=== PATIENT | female | born 1955 ===

== ENCOUNTER 2018-05-18 11:53 | Inpatient (IN) | payer OTHER ==
--- NOTE | 2018-05-18 13:00 | ED PDOC ---
Arrival/HPI - General Chief Complaint: Altered Mental Status Time Seen by Provider: 05/18/18 12:02 Historian: Patient - History of Present Illness Narrative History of Present Illness (Text): 05/18/18 12:56 63 year old female, with past medical history of hypertension and diabetes, presents to the Emergency department accompanied by daughter for evaluation of confusion since yesterday. As per daughter, patient expressed feeling "sick" since Wednesday but did not elaborate any further. Patient reported worsening symptoms yesterday associated with mild imbalance with ambulation. Daughter reports patient became more confused this morning, prompting her to present to the ED for medical evaluation. Patient informs having a cold but denies any fever, chills, cough or congestion. Patient denies any headache, dizziness, chest pain, shortness of breath, dyspnea on exertion, abdominal pain, nausea, vomiting, diarrhea, back pain, neck pain, or any other complaints. PMD: [facility] Time/Duration: < week Symptom Onset: Gradual Symptom Course: Unchanged Activities at Onset: Light Context: Home Past Medical History - Provider Review Nursing Documentation Reviewed: Yes - Past History Past History: Non-Contributing - Infectious Disease Hx of Infectious Diseases: None - Tetanus Immunization Tetanus Immunization: Unknown - Cardiac Hx Cardiac Disorders: Yes Hx Hypertension: Yes - Pulmonary Hx Respiratory Disorders: No - Neurological Hx Neurological Disorder: No - HEENT Hx HEENT Disorder: No - Renal Hx Renal Disorder: No - Endocrine/Metabolic Hx Endocrine Disorders: Yes Hx Diabetes Mellitus Type 2: Yes - Hematological/Oncological Hx Blood Disorders: No - Integumentary Hx Dermatological Disorder: No - Musculoskeletal/Rheumatological Hx Musculoskeletal Disorders: No - Gastrointestinal Hx Gastrointestinal Disorders: No - Genitourinary/Gynecological Hx Genitourinary Disorders: No - Psychiatric Hx Psychophysiologic Disorder: No Hx Substance Use: No - Surgical History Hx Cholecystectomy: Yes (15 years ago) - Suicidal Assessment Feels Threatened In Home Enviroment: No Family/Social History - Physician Review Nursing Documentation Reviewed: Yes Family/Social History: Unknown Family HX Smoking Status: Never Smoked Hx Alcohol Use: No Hx Substance Use: No Hx Substance Use Treatment: No Allergies/Home Meds Allergies/Adverse Reactions: Allergies No Known Allergies Allergy (Verified 05/18/18 12:07) Home Medications: Home Meds Medication Instructions Recorded Confirmed Insulin Detemir [Levemir] 30 unit SC DAILY 05/29/15 05/18/18 Review of Systems - Physician Review All systems were reviewed & negative as marked: Yes - Review of Systems Constitutional: absent: Fevers Respiratory: absent: SOB, Cough Cardiovascular: absent: Chest Pain, EDMOND Gastrointestinal: absent: Abdominal Pain, Diarrhea, Nausea, Vomiting Genitourinary Female: absent: Dysuria, Urine Output Changes Musculoskeletal: absent: Back Pain, Neck Pain Skin: absent: Rash Neurological: Other (Confused than baseline). absent: Headache, Dizziness Physical Exam Vital Signs Reviewed: Yes Vital Signs Temp Pulse Resp BP Pulse Ox 05/18/18 11:57 97.8 F 118 H 18 175/96 H 98 Temperature: Afebrile Blood Pressure: Hypertensive Pulse: Tachycardic Respiratory Rate: Normal Appearance: Positive for: Well-Appearing, Non-Toxic, Comfortable Pain Distress: None Mental Status: Positive for: Confused - Systems Exam Head: Present: Atraumatic, Normocephalic Pupils: Present: PERRL Extroacular Muscles: Present: EOMI Conjunctiva: Present: Normal Respiratory/Chest: Present: Clear to Auscultation, Good Air Exchange. No: Respiratory Distress, Accessory Muscle Use Cardiovascular: Present: Regular Rate and Rhythm, Normal S1, S2. No: Murmurs Abdomen: No: Tenderness, Distention, Peritoneal Signs Back: Present: Normal Inspection Upper Extremity: Present: Normal Inspection. No: Cyanosis, Edema Lower Extremity: Present: Normal Inspection. No: Edema Neurological: Present: GCS=15, CN II-XII Intact, Speech Normal (Slow to answer to questions and commands. ), Other (Finger to nose test normal, heel to barrios test normal. ) Skin: Present: Warm, Dry, Normal Color. No: Rashes Psychiatric: Present: Alert, Normal Insight, Normal Concentration Medical Decision Making ED Course and Treatment: 05/18/18 12:56 Impression: 63 year old female presents to the Emergency department for evaluation of confusion since unknown baseline. Differential Diagnosis included but are not limited to: CVA vs. DKA vs. Electrolyte imbalance Plan: -- Labs -- CT of Head -- VBG -- EKG -- Chest X-ray -- IV Fluids -- Blood Culture -- Reassess and disposition Prior Visits: Notes and results from previous visits were reviewed. Progress Notes: 05/18/18 12:56 EKG: Ordered, reviewed, and independently interpreted the EKG. Rate : 99 BPM Rhythm : NSR 05/18/18 15:25 CT of head reviewed by radiologist, shows: Discrete round low-density lesions in the left posterior cuellar radiata and parietal subcortical white matter are strictly nonspecific. The differential considerations include age indeterminate likely chronic infarctions, demyelination amongst others. An MRI of the brain without and with intravenous contrast is recommended for definitive characterization. 05/18/18 15:36 Chest X-ray reviewed by radiologist, shows: No active pulmonary disease. 05/18/18 16:55 Patient still with same neuro exam. Case was discussed with the hospitalist, Dr. Christopher and admitted to the hospitalist service. Case was discussed with Dr. Tolentino, Neurologist. Patient is not a Candidate for TPA due to unknown time of onset. NIHSS 2. Patient also just developed a low grade fever of 100.3. UA sent. 05/18/18 18:52 UA postive for UTI. Treated with Rocephin IV. Called RN Jeison from the floor who is taking care of her and made her aware of the abx order. She will give it now. - RAD Interpretation 911 Emergency Dispatcher: Radiologist NIHSS Scale ([place]) Time Performed: 13:10 - How Severe is the Stoke Baseline Level of Consciousness: 0=Alert LOC to Questions: 0=Both comments correct LOC to commands: 0=Obeys both correctly Best Gaze: 0=Normal Visual: 0=No visual loss Facial: 0=Normal Motor Arm - Left: 0=No drift Motor Arm - Right: 0=No drift Motor Leg - Left: 0=No drift Motor Leg - Right: 0=No drift Limb Ataxia: 0=Absent Sensory: 0=Normal Best Language: 1=Mild to moderate aphasia Dysarthia: 1=Mild to moderate slurring Extinction & Inattention (Neglect): 0=Normal, no object Score: 2 Risk Level: Minor Stroke Risk rTPA Inclusion/Exclusion - Refusal of Treatment Patient Refused Treatment: No - Inclusion Criteria for Altepase Patient is 18 years or Older: Yes The Clinical Diagnosis of Ischemic Stroke That is Causing a Potentially Disabling Neurological Deficit: Yes Time of Onset is Well Established to be Less Than 270 Minute Before Treatment Would Begin: No Risk/Benefit Discussed With Patient/Family Member Present: No - Scribe Statement The provider has reviewed the documentation as recorded by the Scribe Rolando Linda. All medical record entries made by the Dev were at my direction and personally dictated by me. I have reviewed the chart and agree that the record accurately reflects my personal performance of the history, physical exam, medical decision making, and the department course for this patient. I have also personally directed, reviewed, and agree with the discharge instructions and disposition. Disposition/Present on Arrival - Present on Arrival Any Indicators Present on Arrival: No History of DVT/PE: No History of Uncontrolled Diabetes: No Urinary Catheter: No History of Decub. Ulcer: No History Surgical Site Infection Following: None - Disposition Have Diagnosis and Disposition been Completed?: Yes Diagnosis: CVA (cerebral vascular accident), UTI (urinary tract infection) Disposition: HOSPITALIZED Disposition Time: 16:58 Patient Plan: Admission Patient Problems: Current Active Problems Problem Status Onset CVA (cerebral vascular accident) Acute Condition: GUARDED
[2018-05-18] MEDS: Sodium Chloride 0.9% 1,000 ML IV SCH (13:40)
[2018-05-18 13:59] LABS: BASO # 0.03 K/mm3 (0.0-2.0); BASO % 0.3 % (0.0-3.0); EOS % 0.2 % (1.5-5.0); GRAN # 8.6 (1.4-6.5); GRAN % 74.1 % (50.0-68.0); HEMOGLOBIN 14.6 g/dL (12.0-16.0); LYMPH # 1.9 (1.2-3.4); LYMPH % 16.3 % (22.0-35.0); MEAN CORPUSCULAR HGB CONC 34.5 g/dl (31.0-37.0); MEAN PLATELET VOLUME 9.8 fl (7.0-11.0); MONO # 1.1 (0.1-0.6); MONO % 9.1 % (1.0-6.0); RBC 5.22 10^6/uL (3.5-6.1); RED CELL DISTRIBUTION WIDTH 11.7 % (11.5-14.5); WHITE BLOOD COUNT 11.6 10^3/uL (4.5-11.0)
[2018-05-18 14:00] LABS: VENOUS BLOOD GAS PO2 73 mm/Hg (30-55); VENOUS BLOOD PH 7.38 (7.32-7.43)
[2018-05-18 14:08] LABS: INR 1.09; PARTIAL THROMBOPLASTIN TIME 25.7 Seconds (25.1-36.5); PROTHROMBIN TIME 12.5 SECONDS (9.4-12.5)
[2018-05-18 14:13] LABS: ALBUMIN 4.1 g/dL (3.0-4.8); ALT/SGPT 29 U/L (7-56); AST/SGOT 25 U/L (14-36); BLOOD UREA NITROGEN 16 mg/dL (7-21); CALCIUM 9.1 mg/dL (8.4-10.5); GFR NON-AFRICAN AMERICAN > 60; HDL CHOLESTEROL 47 mg/dL (29-60)
[2018-05-18 14:24] LABS: LDL CHOLESTEROL 163 mg/dL (0-129); TROPONIN I < 0.01 ng/mL
--- NOTE | 2018-05-18 15:13 | CT ---
Date of service: 05/18/2018 PROCEDURE: CT HEAD WITHOUT CONTRAST. HISTORY: confusion, slurred speech COMPARISON: None available. TECHNIQUE: Axial computed tomography images were obtained through the head/brain without intravenous contrast. Radiation dose: Total exam DLP = 877.77 mGy-cm. This CT exam was performed using one or more of the following dose reduction techniques: Automated exposure control, adjustment of the mA and/or kV according to patient size, and/or use of iterative reconstruction technique. FINDINGS: HEMORRHAGE: No intracranial hemorrhage. BRAIN: There are 2 discrete round low-attenuation areas in the left posterior cuellar radiata and parietal subcortical white matter. Thompson-white matter differentiation is preserved.. There is no mass, mass effect or abnormal extra-axial fluid collection. There is no territorial infarction. The midline sagittal structures are normal. There are symmetric bilateral senile basal ganglia calcifications. VENTRICLES: The ventricles are normal in size, shape and configuration. CALVARIUM: There is no calvarial fracture or extracranial soft tissue swelling. PARANASAL SINUSES: Predominantly clear. MASTOID AIR CELLS: The right mastoid air cells are underdeveloped. The left mastoid air cells are clear. OTHER FINDINGS: None. IMPRESSION: Discrete round low-density lesions in the left posterior cuellar radiata and parietal subcortical white matter are strictly nonspecific. The differential considerations include age indeterminate likely chronic infarctions, demyelination amongst others. An MRI of the brain without and with intravenous contrast is recommended for definitive characterization.
--- NOTE | 2018-05-18 15:34 | RAD ---
Date of service: 05/18/2018 HISTORY: Code Stroke COMPARISON: No prior. FINDINGS: LUNGS: The lungs are well inflated and clear. PLEURA: No pleural effusions or pneumothorax. CARDIOVASCULAR: The heart is normal in size. No aortic atherosclerotic calcification present. OSSEOUS STRUCTURES: Within normal limits for the patient's age. VISUALIZED UPPER ABDOMEN: Normal. OTHER FINDINGS: None. IMPRESSION: No active pulmonary disease.
[2018-05-18 17:27] LABS: BARBITURATES, UR NEGATIVE (NEGATIVE); BENZODIAZEPINES, UR NEGATIVE (NEGATIVE); OPIATES, UR NEGATIVE (NEGATIVE); PHENCYCLIDINE, UR NEGATIVE (NEGATIVE)
[2018-05-18 18:28] LABS: URINE BILIRUBIN NEGATIVE (NEGATIVE); URINE BLOOD TRACE-INTACT (NEGATIVE); URINE GLUCOSE (UA) 500 mg/dL (NEGATIVE); URINE LEUKOCYTE ESTERASE NEGATIVE Leu/uL (NEGATIVE); URINE PROTEIN 30 mg/dL (<30 mg/dL); URINE UROBILINOGEN 0.2 E.U./dL (<1 E.U./dL)
[2018-05-18 18:32] LABS: URINE APPEARANCE SL CLOUDY (CLEAR); URINE COLOR YELLOW (YELLOW)
[2018-05-18 18:40] LABS: URINE BACTERIA MOD (NEG); URINE WBC 25 - 30 /hpf (0-6)
[2018-05-18] MEDS ORDERED: cefTRIAXone 1 gm 1 GM/100 ML BAG IVPB STA (18:51)
--- NOTE | 2018-05-18 20:26 | CARD ---
APPROVED REPORT Date of service: 05/18/2018 EKG Measurement Heart [id number] <Conclusion> Normal sinus rhythm Normal ECG
--- NOTE | 2018-05-18 22:00 | CP.PCM.HP ---
<Hal Macias - Last Filed: 05/19/18 06:53> History of Present Illness - History of Present Illness History of Present Illness: H&P for Hospitalist Service Hal Gilberto PGY2 Chief Complaint: As per family, patient unable to speak; unintelligible HPI: Patient is a 63 F with unknown past medical history who presents with family members with complaints of patient having marked trouble with talking. Most of history was obtained from patient's daughter as patient was unable to communicate well. As per daughter, patient began complaining of generalized cold like symptoms which began Wednesday night. Patient then woke up Wednesday to go to work and still didn't feel well however kept trying to work. By late afternoon patient noted something was "off" and left work early to go home. By time patient got home she noticed she was having difficult speaking and ten decided to sleep due to frustration with homes that upon wakening her symptoms would have resolved. Of note patient's neighbor noticed that patient was struggling to get inside the house since she would only place they bhatti in the door knob however couldnt think to turn the actual door knob to open the door and was observed to be pushing the door with her hand without turning the k nob with hopes of thee door opening which the neighbor found bizarre. ROS limited due to patient's condition PMD:denies Social Hx: denies tobacco, alcohol, drugs Family hx: father ([place]), Mother (denies) Allergies: NKDA CTH: discrete round low-density lesions in left posterior cuellar radiata and parietal subcortical white matter. Present on Admission - Present on Admission Any Indicators Present on Admission: No Review of Systems - Review of Systems Systems not reviewed;Unavailable: Acuity of Condition Past Patient History - Infectious Disease Hx of Infectious Diseases: None - Tetanus Immunizations Tetanus Immunization: Unknown - Past Social History Smoking Status: Never Smoked - CARDIAC Hx Cardiac Disorders: Yes Hx Hypertension: Yes - PULMONARY Hx Respiratory Disorders: No - NEUROLOGICAL Hx Neurological Disorder: No - HEENT Hx HEENT Problems: No - RENAL Hx Chronic Kidney Disease: No - ENDOCRINE/METABOLIC Hx Endocrine Disorders: Yes Hx Diabetes Mellitus Type 2: Yes - HEMATOLOGICAL/ONCOLOGICAL Hx Blood Disorders: No - INTEGUMENTARY Hx Dermatological Problems: No - MUSCULOSKELETAL/RHEUMATOLOGICAL Hx Musculoskeletal Disorders: No - GASTROINTESTINAL Hx Gastrointestinal Disorders: No - GENITOURINARY/GYNECOLOGICAL Hx Genitourinary Disorders: No - PSYCHIATRIC Hx Psychophysiologic Disorder: No Hx Substance Use: No - SURGICAL HISTORY Hx Cholecystectomy: Yes (15 years ago) Meds Allergies/Adverse Reactions: Allergies Allergy/AdvReac Type Severity Reaction Status Date / Time No Known Allergies Allergy Verified 05/18/18 12:07 Physical Exam - Constitutional Appears: Non-toxic, No Acute Distress - Head Exam Head Exam: ATRAUMATIC, NORMAL INSPECTION, NORMOCEPHALIC - Eye Exam Eye Exam: EOMI, Normal appearance - ENT Exam ENT Exam: Mucous Membranes Moist, Normal Exam - Neck Exam Neck exam: Positive for: Normal Inspection - Respiratory Exam Respiratory Exam: Clear to Auscultation Bilateral, NORMAL BREATHING PATTERN - Cardiovascular Exam Cardiovascular Exam: REGULAR RHYTHM, +S1, +S2 - GI/Abdominal Exam GI & Abdominal Exam: Normal Bowel Sounds, Soft - Extremities Exam Extremities exam: Positive for: normal inspection - Neurological Exam Neurological exam: Alert, Oriented x3 - Psychiatric Exam Psychiatric exam: Normal Affect, Normal Mood - Skin Skin Exam: Normal Color, Warm Results - Vital Signs Recent Vital Signs: Last Vital Signs Temp 100.3 F H 05/18/18 18:23 Pulse 99 H 05/18/18 18:23 Resp 18 05/18/18 18:23 BP 116/44 L 05/18/18 18:23 Pulse Ox 95 05/18/18 18:23 - Labs Result Diagrams: 05/18/18 13:42 05/18/18 13:42 Labs: Laboratory Results - last 24 hr 05/18/18 05/18/18 05/18/18 13:42 13:42 13:42 WBC 11.6 H RBC 5.22 Hgb 14.6 Hct 42.3 MCV 81.0 MCH 28.0 MCHC 34.5 RDW 11.7 Plt Count 385 MPV 9.8 Gran % 74.1 H Lymph % (Auto) 16.3 L Sunflower % (Auto) 9.1 H Eos % (Auto) 0.2 L Baso % (Auto) 0.3 Gran # 8.60 H Lymph # (Auto) 1.9 Sunflower # (Auto) 1.1 H Eos # (Auto) 0.0 Baso # (Auto) 0.03 PT 12.5 INR 1.09 APTT 25.7 pO2 VBG pH VBG pCO2 VBG HCO3 VBG Total CO2 VBG O2 Sat (Calc) VBG Base Excess VBG Potassium Sodium 136 Chloride 101 Glucose Lactate FiO2 Potassium 3.8 Carbon Dioxide 26 Anion Gap 13 BUN 16 Creatinine 0.4 L Est GFR ( Amer) > 60 Est GFR (Non-Af Amer) > 60 Random Glucose 248 H Calcium 9.1 Magnesium 1.8 Total Bilirubin 0.7 AST 25 ALT 29 Alkaline Phosphatase 140 H Troponin I < 0.01 Total Protein 8.0 Albumin 4.1 Globulin 3.9 Albumin/Globulin Ratio 1.0 L Triglycerides 128 Cholesterol 237 H LDL Cholesterol Direct 163 H HDL Cholesterol 47 TSH 3rd Generation Venous Blood Potassium Urine Color Urine Appearance Urine pH Ur Specific [place] Urine Protein Urine Glucose (UA) Urine Ketones Urine Blood Urine Nitrate Urine Bilirubin Urine Urobilinogen Ur Leukocyte Esterase Urine RBC Urine WBC Ur Epithelial Cells Urine Bacteria Urine Opiates Screen Urine Methadone Screen Ur Barbiturates Screen Ur Phencyclidine Scrn Ur Amphetamines Screen U Benzodiazepines Scrn U Oth Cocaine Metabols U Cannabinoids Screen Blood Type Blood Type Confirm Antibody Screen BBK History Checked 05/18/18 05/18/18 05/18/18 13:42 14:02 14:32 WBC RBC Hgb Hct MCV MCH MCHC RDW Plt Count MPV Gran % Lymph % (Auto) Sunflower % (Auto) Eos % (Auto) Baso % (Auto) Gran # Lymph # (Auto) Sunflower # (Auto) Eos # (Auto) Baso # (Auto) PT INR APTT pO2 73 H VBG pH 7.38 VBG pCO2 43.0 VBG HCO3 25.4 VBG Total CO2 26.7 VBG O2 Sat (Calc) 97.3 H VBG Base Excess 0.0 VBG Potassium 3.8 Sodium 142.0 Chloride 94.0 L Glucose 268 H Lactate 1.3 FiO2 21.0 Potassium Carbon Dioxide Anion Gap BUN Creatinine Est GFR ( Amer) Est GFR (Non-Af Amer) Random Glucose Calcium Magnesium Total Bilirubin AST ALT Alkaline Phosphatase Troponin I Total Protein Albumin Globulin Albumin/Globulin Ratio Triglycerides Cholesterol LDL Cholesterol Direct HDL Cholesterol TSH 3rd Generation Venous Blood Potassium 3.8 Urine Color Urine Appearance Urine pH Ur Specific [place] Urine Protein Urine Glucose (UA) Urine Ketones Urine Blood Urine Nitrate Urine Bilirubin Urine Urobilinogen Ur Leukocyte Esterase Urine RBC Urine WBC Ur Epithelial Cells Urine Bacteria Urine Opiates Screen Urine Methadone Screen Ur Barbiturates Screen Ur Phencyclidine Scrn Ur Amphetamines Screen U Benzodiazepines Scrn U Oth Cocaine Metabols U Cannabinoids Screen Blood Type B POSITIVE Blood Type Confirm B POSITIVE Antibody Screen Negative BBK History Checked No verified bt 05/18/18 05/18/18 05/18/18 15:00 15:00 18:19 WBC RBC Hgb Hct MCV MCH MCHC RDW Plt Count MPV Gran % Lymph % (Auto) Sunflower % (Auto) Eos % (Auto) Baso % (Auto) Gran # Lymph # (Auto) Sunflower # (Auto) Eos # (Auto) Baso # (Auto) PT INR APTT pO2 VBG pH VBG pCO2 VBG HCO3 VBG Total CO2 VBG O2 Sat (Calc) VBG Base Excess VBG Potassium Sodium Chloride Glucose Lactate FiO2 Potassium Carbon Dioxide Anion Gap BUN Creatinine Est GFR ( Amer) Est GFR (Non-Af Amer) Random Glucose Calcium Magnesium Total Bilirubin AST ALT Alkaline Phosphatase Troponin I Total Protein Albumin Globulin Albumin/Globulin Ratio Triglycerides Cholesterol LDL Cholesterol Direct HDL Cholesterol TSH 3rd Generation 1.53 Venous Blood Potassium Urine Color Yellow Urine Appearance Sl cloudy Urine pH 6.0 Ur Specific [place] >= 1.030 Urine Protein 30 H Urine Glucose (UA) 500 H Urine Ketones 40 H Urine Blood Trace-intact H Urine Nitrate Negative Urine Bilirubin Negative Urine Urobilinogen 0.2 Ur Leukocyte Esterase Negative Urine RBC 2 - 5 Urine WBC 25 - 30 Ur Epithelial Cells 10 - 12 Urine Bacteria Mod Urine Opiates Screen Negative Urine Methadone Screen Negative Ur Barbiturates Screen Negative Ur Phencyclidine Scrn Negative Ur Amphetamines Screen Negative U Benzodiazepines Scrn Negative U Oth Cocaine Metabols Negative U Cannabinoids Screen Negative Blood Type Blood Type Confirm Antibody Screen BBK History Checked Assessment & Plan - Assessment and Plan (Free Text) Assessment: Patient is a 63 F with unknown past medical history who presents with family members with complaints of patient having a hard time speaking. Patient is able to comprehend, but has problems expressing herself. Found to often go off on tangents when she speaks. Also has gaps in her speech where she misses verbs. Has been known to refer to herself and others in 3rd person. Plan: Expressive aphasia -CTH-discrete round low-density lesions in left posterior cuellar radiata and parietal subcortical white matter. -Neuro on consult -Aspirin daily -Swallow eval and treat -PT/OT -Aspiration/Seizure/Fall precautions -CTA head/neck -HOB 45 degrees -Brain MRI -Lipid panel IDDM -HgA1C 12 -ISS-med -Diabetic education Leukocytosis -Monitor, possibly reactive -Blood/Urine cultures sent -UA neg nitrates nd LE, wbc count 25-30 DVT/GI ppx: SCDs/Protonix Case seen and discussed with Dr. Rodriguez <Tiffani Rodrigeuz - Last Filed: 05/22/18 14:19> Results - Vital Signs Recent Vital Signs: Last Vital Signs Temp 97.8 F 05/22/18 12:00 Pulse 82 05/22/18 13:48 Resp 18 05/22/18 12:00 BP 149/88 05/22/18 12:00 Pulse Ox 99 05/22/18 06:00 - Labs Result Diagrams: 05/22/18 07:30 05/22/18 07:30 Labs: Laboratory Results - last 24 hr 05/21/18 05/21/18 05/22/18 16:32 21:16 07:29 WBC RBC Hgb Hct MCV MCH MCHC RDW Plt Count MPV Gran % Lymph % (Auto) Sunflower % (Auto) Eos % (Auto) Baso % (Auto) Gran # Lymph # (Auto) Sunflower # (Auto) Eos # (Auto) Baso # (Auto) Sodium Potassium Chloride Carbon Dioxide Anion Gap BUN Creatinine Est GFR ( Amer) Est GFR (Non-Af Amer) POC Glucose (mg/dL) 161 H 170 H 177 H Random Glucose Calcium Total Bilirubin AST ALT Alkaline Phosphatase Total Protein Albumin Globulin Albumin/Globulin Ratio 05/22/18 05/22/18 07:30 07:30 WBC 13.8 H D RBC 4.96 Hgb 13.6 Hct 39.9 MCV 80.4 MCH 27.4 MCHC 34.1 RDW 11.6 Plt Count 377 MPV 9.6 Gran % 77.8 H Lymph % (Auto) 12.6 L Sunflower % (Auto) 8.8 H Eos % (Auto) 0.6 L Baso % (Auto) 0.2 Gran # 10.72 H Lymph # (Auto) 1.7 Sunflower # (Auto) 1.2 H Eos # (Auto) 0.1 Baso # (Auto) 0.03 Sodium 139 Potassium 3.6 Chloride 102 Carbon Dioxide 27 Anion Gap 13 BUN 9 Creatinine 0.4 L Est GFR ( Amer) > 60 Est GFR (Non-Af Amer) > 60 POC Glucose (mg/dL) Random Glucose 178 H Calcium 9.0 Total Bilirubin 0.6 AST 21 ALT 21 Alkaline Phosphatase 110 Total Protein 6.9 Albumin 3.5 Globulin 3.4 Albumin/Globulin Ratio 1.0 L Attending/Attestation - Attestation I have personally seen and examined this patient.: Yes I have fully participated in the care of the patient.: Yes I have reviewed all pertinent clinical information: Yes Notes (Text): 05/22/18 14:17 attending note; Patient seen and examined with resident in ER. Patient's family by the bedside. History from patient's family. Patient is a 63 -year-old [place]er-speaking female with unknown past medical history who presents with family members with complaints of patient having marked trouble with talking. Most of history was obtained from patient's daughter as patient was unable to communicate well. dysarthria; possible expressive aphasia. CT head showed discrete round low-density lesions in left posterior cuellar radiata and parietal subcortical white matter. neurology evaluation requested. MRA and CTA ordered. Speech and swallow evaluation requested. The patient failed speech and swallow screen in the ER. Continue IV fluids. Per rectal aspirin given. Echocardiogram ordered. Physical therapy requested. The diagnosis, follow-up plan discussed with family in detail.
[2018-05-18] MEDS: Insulin Reg-MEDIUM-Coverage SC SCH (22:32)
[2018-05-19 00:56] VITALS: BMI 26.5
[2018-05-19] MEDS: Sodium Chloride 0.9% 1,000 ML IV SCH ×3 (05:48→18:48)
[2018-05-19 06:35] LABS: BASO # 0.03 K/mm3 (0.0-2.0); BASO % 0.3 % (0.0-3.0); EOS # 0.1 (0.0-0.7); EOS % 0.5 % (1.5-5.0); GRAN # 5.69 (1.4-6.5); GRAN % 62.3 % (50.0-68.0); HEMOGLOBIN 13.3 g/dL (12.0-16.0); LYMPH # 2.4 (1.2-3.4); LYMPH % 26.1 % (22.0-35.0); MEAN CELL VOLUME 81.4 fl (80.0-105.0); MEAN CORPUSCULAR HEMOGLOBIN 27.3 pg (25.0-35.0); MEAN CORPUSCULAR HGB CONC 33.5 g/dl (31.0-37.0); MEAN PLATELET VOLUME 9.6 fl (7.0-11.0); MONO % 10.8 % (1.0-6.0); RBC 4.88 10^6/uL (3.5-6.1); RED CELL DISTRIBUTION WIDTH 11.7 % (11.5-14.5); WHITE BLOOD COUNT 9.2 10^3/uL (4.5-11.0)
[2018-05-19 07:01] LABS: ALBUMIN 3.5 g/dL (3.0-4.8); ALT/SGPT 29 U/L (7-56); AST/SGOT 23 U/L (14-36); BLOOD UREA NITROGEN 12 mg/dL (7-21); CALCIUM 8.4 mg/dL (8.4-10.5); GFR NON-AFRICAN AMERICAN > 60; HDL CHOLESTEROL 36 mg/dL (29-60)
[2018-05-19 07:04] LABS: LDL CHOLESTEROL 138 mg/dL (0-129)
--- NOTE | 2018-05-19 07:33 | CP.PCM.PN ---
<Suzi Esquivel - Last Filed: 05/19/18 21:01> Subjective - Date & Time of Evaluation Date of Evaluation: 05/19/18 Time of Evaluation: 09:45 - Subjective Subjective: Internal medicine progress ntoe for Dr. Rodriguez Patient seen and examined this am at bedside. NAEO per nursing. Patient is continuing to have difficulty expressing herself but is oriented to self and place generally. Patient is able to ambulate with PT assistance but has deficits. Patient became tearful during interview with daughter present. Daughter denies any improvement or worsening of symptoms since admission to the hospital. Patient is unable to answer ROS at this time d/t expressive aphasia. Objective - Vital Signs/Intake and Output Vital Signs (last 24 hours): Temp Pulse Resp BP Pulse Ox 97.8 F 79 20 130/65 97 05/19/18 06:00 05/19/18 06:00 05/19/18 06:00 05/19/18 06:00 05/19/18 06:00 Intake and Output: 05/19/18 05/19/18 06:59 18:59 Intake Total 1200 Output Total 0 Balance 1200 - Medications Medications: Current Medications Aspirin (Aspirin Supp) 300 mg RC DAILY [facility] Sodium Chloride (Sodium Chloride 0.9%) 1,000 mls @ 100 mls/hr IV .Q10H [facility] Last Admin: 05/19/18 05:48 Dose: 100 mls/hr Insulin Human Regular (Humulin R Med) 0 units SC ACHS [facility]; Protocol Last Admin: 05/18/18 22:32 Dose: Not Given Pantoprazole Sodium (Protonix Inj) 40 mg IVP DAILY [facility] - Labs Labs: 05/19/18 06:05 05/19/18 06:05 PT 12.5 SECONDS (9.4-12.5) 05/18/18 13:42 INR 1.09 05/18/18 13:42 APTT 25.7 Seconds (25.1-36.5) 05/18/18 13:42 - Constitutional Appears: Well, Non-toxic, No Acute Distress - Head Exam Head Exam: ATRAUMATIC, NORMOCEPHALIC - Eye Exam Eye Exam: EOMI - ENT Exam ENT Exam: Mucous Membranes Moist - Respiratory Exam Respiratory Exam: NORMAL BREATHING PATTERN - Cardiovascular Exam Cardiovascular Exam: REGULAR RHYTHM - GI/Abdominal Exam GI & Abdominal Exam: Soft. absent: Distended, Guarding, Tenderness - Extremities Exam Extremities Exam: absent: Calf Tenderness, Pedal Edema - Neurological Exam Neurological Exam: Alert, Awake. absent: Oriented x3 Neuro motor strength exam: Left Upper Extremity: 5, Right Upper Extremity: 4, Left Lower Extremity: 5, Right Lower Extremity: 3 Additional comments: pt visibly drags right foot when ambulating with PT, pt displays expressive aphasia and word finding difficulty - Psychiatric Exam Psychiatric exam: Normal Mood - Skin Skin Exam: Dry, Intact, Normal Color, Warm Assessment and Plan - Assessment and Plan (Free Text) Assessment: 63 yr F with Infarcts on MRI brain to left cuellar radiata and parietal subcortical white matter with expressive aphasia and right sided weakness Plan: Expressive aphasia -CTH-discrete round low-density lesions in left posterior cuellar radiata and parietal subcortical white matter. -Neuro on consult, recs appreciated -Aspirin daily, Beginning plavix per Neuro recs -Swallow eval and treat today, will f/u diet recs - NS @ 100 until diet given -PT/OT -Aspiration/Seizure/Fall precautions -CTA head/neck negative for current aneurysm, stenosis or occlusion -HOB 45 degrees -Brain MRI: showing -mild hypercholesterolemia with Low HDL; ASCVD risk 6.5% will start Statin therapy Mild Hypokalemia - repleted - repeat labs in am IDDM -HgA1C 12 -ISS-med -Diabetic education Leukocytosis (normalized/resolved) - Monitor, possibly reactive - Blood/Urine cultures sent - UA neg nitrates and LE - afebrile DVT/GI ppx: SCDs/Protonix Case seen and discussed with Dr. Jennifer Esquivel, PGY 1 <Tiffani Rodriguez - Last Filed: 05/22/18 14:20> Objective - Vital Signs/Intake and Output Vital Signs (last 24 hours): Temp Pulse Resp BP Pulse Ox 97.8 F 82 18 149/88 99 05/22/18 12:00 05/22/18 13:48 05/22/18 12:00 05/22/18 12:00 05/22/18 06:00 Intake and Output: 05/22/18 05/22/18 06:59 18:59 Intake Total 540 Output Total 700 Balance -160 - Medications Medications: Current Medications Aspirin (Aspirin Chewable) 81 mg PO DAILY [facility] Last Admin: 05/22/18 09:59 Dose: 81 mg Atorvastatin Calcium (Lipitor) 40 mg PO DIN [facility] Last Admin: 05/21/18 17:44 Dose: 40 mg Clopidogrel Bisulfate (Plavix) 75 mg PO DAILY [facility] Last Admin: 05/22/18 09:59 Dose: 75 mg Insulin Human Regular (Humulin R Med) 0 units SC ACHS [facility]; Protocol Last Admin: 05/22/18 11:52 Dose: 3 unit Pantoprazole Sodium (Protonix Ec Tab) 40 mg PO ACB [facility] Last Admin: 05/22/18 09:59 Dose: 40 mg - Labs Labs: 05/22/18 07:30 05/22/18 07:30 PT 12.5 SECONDS (9.4-12.5) 05/18/18 13:42 INR 1.09 05/18/18 13:42 APTT 25.7 Seconds (25.1-36.5) 05/18/18 13:42 Attending/Attestation - Attestation I have personally seen and examined this patient.: Yes I have fully participated in the care of the patient.: Yes I have reviewed all pertinent clinical information, including history, physical exam and plan: Yes Notes (Text): 05/22/18 14:19 attending note; Patient seen and examined with resident. Patient's family by the bedside. still with significant expressive aphasia. Patient is a 63 -year-old Turkmen-speaking female with unknown past medical history who presents with family members with complaints of patient having marked trouble with talking. Most of history was obtained from patient's daughter as patient was unable to communicate well. dysarthria; possible expressive aphasia. CT head showed discrete round low-density lesions in left posterior cuellar radiata and parietal subcortical white matter. neurology evaluation requested. CTA Of head and neck is negative for any acute stenosis. MRI pending. Speech and swallow evaluation requested. The patient failed speech and swallow screen in the ER. Continue IV fluids. Per rectal aspirin given. Echocardiogram ordered. Physical therapy appreciated. Patient wit significant gait abnormality. Occupational therapy ordered. The diagnosis, follow-up plan discussed with family in detail.
[2018-05-19] MEDS: Insulin Reg-MEDIUM-Coverage SC SCH ×3 (08:41→17:50)
--- NOTE | 2018-05-19 11:00 | CP.PCM.CON ---
<Jaret Donato - Last Filed: 05/19/18 14:34> History of Present Illness - History of Present Illness History of Present Illness: Neurology Consult Note for Dr. Jones Reason for Consultation: R/O CVA Patient is a 63 yo F with PMH of HTN and DM brought to [facility] by family due to difficulty talking. Patient is alert and oriented to herself, but not to place or time. Patient was able to answer some questioning, but would have difficulty speaking after a few words. Patient did not seem to understand most commands during exam. Most of the history was provided by daughter, who was at bedside. S he stated that the patient's aphasia started 2 days ago. She stated that her mother would sometimes say things that did not make sense. Then 1 day ago the daughter noticed that her mother was has having difficulty doing basic things around the house, such as turning a door knob. Daughter states she believes her mother has been taking medications, but thinks she's supposed to be on mediations. ROS limited 2/2 patient's current mental status. PMH: HTN Social Hx: denies tobacco, alcohol, drugs Family hx: father ([place]), Mother (denies) Allergies: NKDA Past Patient History - Infectious Disease Hx of Infectious Diseases: None - Tetanus Immunizations Tetanus Immunization: Unknown - Past Social History Smoking Status: Never Smoked - CARDIAC Hx Cardiac Disorders: Yes Hx Hypertension: Yes - PULMONARY Hx Respiratory Disorders: No - NEUROLOGICAL Hx Neurological Disorder: No - HEENT Hx HEENT Problems: No - RENAL Hx Chronic Kidney Disease: No - ENDOCRINE/METABOLIC Hx Endocrine Disorders: Yes Hx Diabetes Mellitus Type 2: Yes - HEMATOLOGICAL/ONCOLOGICAL Hx Blood Disorders: No - INTEGUMENTARY Hx Dermatological Problems: No - MUSCULOSKELETAL/RHEUMATOLOGICAL Hx Musculoskeletal Disorders: No - GASTROINTESTINAL Hx Gastrointestinal Disorders: No - GENITOURINARY/GYNECOLOGICAL Hx Genitourinary Disorders: No - PSYCHIATRIC Hx Psychophysiologic Disorder: No Hx Substance Use: No - SURGICAL HISTORY Hx Cholecystectomy: Yes (15 years ago) Meds Allergies/Adverse Reactions: Allergies Allergy/AdvReac Type Severity Reaction Status Date / Time No Known Allergies Allergy Verified 05/18/18 12:07 - Medications Medications: Current Medications Aspirin (Aspirin Supp) 300 mg RC DAILY [facility] Sodium Chloride (Sodium Chloride 0.9%) 1,000 mls @ 100 mls/hr IV .Q10H [facility] Last Admin: 05/19/18 05:48 Dose: 100 mls/hr Potassium Chloride (Potassium Chloride 10 Meq/100 Ml) 10 meq in 100 mls @ 50 mls/hr IVPB Q2H [facility] Stop: 05/19/18 12:59 Insulin Human Regular (Humulin R Med) 0 units SC ACHS [facility]; Protocol Last Admin: 05/19/18 08:41 Dose: Not Given Pantoprazole Sodium (Protonix Inj) 40 mg IVP DAILY [facility] Results - Vital Signs Recent Vital Signs: Last Vital Signs Temp 97.8 F 05/19/18 06:00 Pulse 79 05/19/18 06:00 Resp 20 05/19/18 06:00 BP 130/65 05/19/18 06:00 Pulse Ox 97 05/19/18 06:00 - Labs Result Diagrams: 05/19/18 06:05 05/19/18 06:05 Labs: Laboratory Results - last 24 hr 05/18/18 05/18/18 05/18/18 13:42 13:42 13:42 WBC 11.6 H RBC 5.22 Hgb 14.6 Hct 42.3 MCV 81.0 MCH 28.0 MCHC 34.5 RDW 11.7 Plt Count 385 MPV 9.8 Gran % 74.1 H Lymph % (Auto) 16.3 L [place] % (Auto) 9.1 H Eos % (Auto) 0.2 L Baso % (Auto) 0.3 Gran # 8.60 H Lymph # (Auto) 1.9 [place] # (Auto) 1.1 H Eos # (Auto) 0.0 Baso # (Auto) 0.03 PT 12.5 INR 1.09 APTT 25.7 pO2 VBG pH VBG pCO2 VBG HCO3 VBG Total CO2 VBG O2 Sat (Calc) VBG Base Excess VBG Potassium Sodium 136 Chloride 101 Glucose Lactate FiO2 Potassium 3.8 Carbon Dioxide 26 Anion Gap 13 BUN 16 Creatinine 0.4 L Est GFR ( Amer) > 60 Est GFR (Non-Af Amer) > 60 Random Glucose 248 H Hemoglobin A1c Calcium 9.1 Magnesium 1.8 Total Bilirubin 0.7 GGT AST 25 ALT 29 Alkaline Phosphatase 140 H Troponin I < 0.01 Total Protein 8.0 Albumin 4.1 Globulin 3.9 Albumin/Globulin Ratio 1.0 L Triglycerides 128 Cholesterol 237 H LDL Cholesterol Direct 163 H HDL Cholesterol 47 Vitamin B12 TSH 3rd Generation Venous Blood Potassium Urine Color Urine Appearance Urine pH Ur Specific [place] Urine Protein Urine Glucose (UA) Urine Ketones Urine Blood Urine Nitrate Urine Bilirubin Urine Urobilinogen Ur Leukocyte Esterase Urine RBC Urine WBC Ur Epithelial Cells Urine Bacteria Urine Opiates Screen Urine Methadone Screen Ur Barbiturates Screen Ur Phencyclidine Scrn Ur Amphetamines Screen U Benzodiazepines Scrn U Oth Cocaine Metabols U Cannabinoids Screen Blood Type Blood Type Confirm Antibody Screen BBK History Checked 05/18/18 05/18/18 05/18/18 13:42 13:42 14:02 WBC RBC Hgb Hct MCV MCH MCHC RDW Plt Count MPV Gran % Lymph % (Auto) [place] % (Auto) Eos % (Auto) Baso % (Auto) Gran # Lymph # (Auto) [place] # (Auto) Eos # (Auto) Baso # (Auto) PT INR APTT pO2 73 H VBG pH 7.38 VBG pCO2 43.0 VBG HCO3 25.4 VBG Total CO2 26.7 VBG O2 Sat (Calc) 97.3 H VBG Base Excess 0.0 VBG Potassium 3.8 Sodium 142.0 Chloride 94.0 L Glucose 268 H Lactate 1.3 FiO2 21.0 Potassium Carbon Dioxide Anion Gap BUN Creatinine Est GFR ( Amer) Est GFR (Non-Af Amer) Random Glucose Hemoglobin A1c 12.0 H Calcium Magnesium Total Bilirubin GGT AST ALT Alkaline Phosphatase Troponin I Total Protein Albumin Globulin Albumin/Globulin Ratio Triglycerides Cholesterol LDL Cholesterol Direct HDL Cholesterol Vitamin B12 TSH 3rd Generation Venous Blood Potassium 3.8 Urine Color Urine Appearance Urine pH Ur Specific [place] Urine Protein Urine Glucose (UA) Urine Ketones Urine Blood Urine Nitrate Urine Bilirubin Urine Urobilinogen Ur Leukocyte Esterase Urine RBC Urine WBC Ur Epithelial Cells Urine Bacteria Urine Opiates Screen Urine Methadone Screen Ur Barbiturates Screen Ur Phencyclidine Scrn Ur Amphetamines Screen U Benzodiazepines Scrn U Oth Cocaine Metabols U Cannabinoids Screen Blood Type B POSITIVE Blood Type Confirm Antibody Screen Negative BBK History Checked No verified bt 05/18/18 05/18/18 05/18/18 14:32 15:00 15:00 WBC RBC Hgb Hct MCV MCH MCHC RDW Plt Count MPV Gran % Lymph % (Auto) [place] % (Auto) Eos % (Auto) Baso % (Auto) Gran # Lymph # (Auto) [place] # (Auto) Eos # (Auto) Baso # (Auto) PT INR APTT pO2 VBG pH VBG pCO2 VBG HCO3 VBG Total CO2 VBG O2 Sat (Calc) VBG Base Excess VBG Potassium Sodium Chloride Glucose Lactate FiO2 Potassium Carbon Dioxide Anion Gap BUN Creatinine Est GFR ( Amer) Est GFR (Non-Af Amer) Random Glucose Hemoglobin A1c Calcium Magnesium Total Bilirubin GGT AST ALT Alkaline Phosphatase Troponin I Total Protein Albumin Globulin Albumin/Globulin Ratio Triglycerides Cholesterol LDL Cholesterol Direct HDL Cholesterol Vitamin B12 620 TSH 3rd Generation Venous Blood Potassium Urine Color Urine Appearance Urine pH Ur Specific [place] Urine Protein Urine Glucose (UA) Urine Ketones Urine Blood Urine Nitrate Urine Bilirubin Urine Urobilinogen Ur Leukocyte Esterase Urine RBC Urine WBC Ur Epithelial Cells Urine Bacteria Urine Opiates Screen Negative Urine Methadone Screen Negative Ur Barbiturates Screen Negative Ur Phencyclidine Scrn Negative Ur Amphetamines Screen Negative U Benzodiazepines Scrn Negative U Oth Cocaine Metabols Negative U Cannabinoids Screen Negative Blood Type Blood Type Confirm B POSITIVE Antibody Screen BBK History Checked 05/18/18 05/18/18 05/19/18 15:00 18:19 06:05 WBC 9.2 D RBC 4.88 Hgb 13.3 Hct 39.7 MCV 81.4 MCH 27.3 MCHC 33.5 RDW 11.7 Plt Count 368 MPV 9.6 Gran % 62.3 Lymph % (Auto) 26.1 [place] % (Auto) 10.8 H Eos % (Auto) 0.5 L Baso % (Auto) 0.3 Gran # 5.69 Lymph # (Auto) 2.4 [place] # (Auto) 1.0 H Eos # (Auto) 0.1 Baso # (Auto) 0.03 PT INR APTT pO2 VBG pH VBG pCO2 VBG HCO3 VBG Total CO2 VBG O2 Sat (Calc) VBG Base Excess VBG Potassium Sodium Chloride Glucose Lactate FiO2 Potassium Carbon Dioxide Anion Gap BUN Creatinine Est GFR ( Amer) Est GFR (Non-Af Amer) Random Glucose Hemoglobin A1c Calcium Magnesium Total Bilirubin GGT AST ALT Alkaline Phosphatase Troponin I Total Protein Albumin Globulin Albumin/Globulin Ratio Triglycerides Cholesterol LDL Cholesterol Direct HDL Cholesterol Vitamin B12 TSH 3rd Generation 1.53 Venous Blood Potassium Urine Color Yellow Urine Appearance Sl cloudy Urine pH 6.0 Ur Specific [place] >= 1.030 Urine Protein 30 H Urine Glucose (UA) 500 H Urine Ketones 40 H Urine Blood Trace-intact H Urine Nitrate Negative Urine Bilirubin Negative Urine Urobilinogen 0.2 Ur Leukocyte Esterase Negative Urine RBC 2 - 5 Urine WBC 25 - 30 Ur Epithelial Cells 10 - 12 Urine Bacteria Mod Urine Opiates Screen Urine Methadone Screen Ur Barbiturates Screen Ur Phencyclidine Scrn Ur Amphetamines Screen U Benzodiazepines Scrn U Oth Cocaine Metabols U Cannabinoids Screen Blood Type Blood Type Confirm Antibody Screen BBK History Checked 05/19/18 05/19/18 06:05 07:00 WBC RBC Hgb Hct MCV MCH MCHC RDW Plt Count MPV Gran % Lymph % (Auto) [place] % (Auto) Eos % (Auto) Baso % (Auto) Gran # Lymph # (Auto) [place] # (Auto) Eos # (Auto) Baso # (Auto) PT INR APTT pO2 VBG pH VBG pCO2 VBG HCO3 VBG Total CO2 VBG O2 Sat (Calc) VBG Base Excess VBG Potassium Sodium 137 Chloride 105 Glucose Lactate FiO2 Potassium 3.4 L Carbon Dioxide 27 Anion Gap 9 L BUN 12 Creatinine 0.4 L Est GFR ( Amer) > 60 Est GFR (Non-Af Amer) > 60 Random Glucose 181 H Hemoglobin A1c Calcium 8.4 Magnesium Total Bilirubin 0.7 GGT 110 H AST 23 ALT 29 Alkaline Phosphatase 116 Troponin I Total Protein 6.9 Albumin 3.5 Globulin 3.4 Albumin/Globulin Ratio 1.0 L Triglycerides 151 Cholesterol 207 H LDL Cholesterol Direct 138 H HDL Cholesterol 36 Vitamin B12 TSH 3rd Generation Venous Blood Potassium Urine Color Urine Appearance Urine pH Ur Specific [place] Urine Protein Urine Glucose (UA) Urine Ketones Urine Blood Urine Nitrate Urine Bilirubin Urine Urobilinogen Ur Leukocyte Esterase Urine RBC Urine WBC Ur Epithelial Cells Urine Bacteria Urine Opiates Screen Urine Methadone Screen Ur Barbiturates Screen Ur Phencyclidine Scrn Ur Amphetamines Screen U Benzodiazepines Scrn U Oth Cocaine Metabols U Cannabinoids Screen Blood Type Blood Type Confirm Antibody Screen BBK History Checked Assessment & Plan - Assessment and Plan (Free Text) Assessment: 63 yo F with PMH of HTN and DM presents to [facility] with expressive aphasia. Will r/o CVA. Plan: - CT head showed hypodense lesions in the left posterior cuellar radiata and parietal subcortical white matter - MRI brain showed 2 areas in left cuellar radiata consistent with CVA - UDS negative - F/u CTA head/neck - Cont ASA - Load plavix 300 mg today, 75 mg daily tomorrow - Recommend statin therapy Patient discussed in detail with Dr. Jones. Errol Donato DO PGY2 <Raz Jones - Last Filed: 05/19/18 18:01> Meds - Medications Medications: Current Medications Aspirin (Aspirin Supp) 300 mg RC DAILY [facility] Last Admin: 05/19/18 10:53 Dose: 300 mg Clopidogrel Bisulfate (Plavix) 75 mg PO DAILY [facility] Sodium Chloride (Sodium Chloride 0.9%) 1,000 mls @ 100 mls/hr IV .Q10H [facility] Last Admin: 05/19/18 10:54 Dose: 100 mls/hr Insulin Human Regular (Humulin R Med) 0 units SC ACHS [facility]; Protocol Last Admin: 05/19/18 17:50 Dose: Not Given Pantoprazole Sodium (Protonix Inj) 40 mg IVP DAILY [facility] Last Admin: 05/19/18 10:53 Dose: 40 mg Results - Vital Signs Recent Vital Signs: Last Vital Signs Temp 97.1 F L 05/19/18 12:00 Pulse 84 05/19/18 15:35 Resp 21 05/19/18 12:00 BP 143/67 05/19/18 12:00 Pulse Ox 97 05/19/18 06:00 - Labs Result Diagrams: 05/19/18 06:05 05/19/18 06:05 Labs: Laboratory Results - last 24 hr 05/18/18 05/18/18 05/18/18 13:42 15:00 18:19 WBC RBC Hgb Hct MCV MCH MCHC RDW Plt Count MPV Gran % Lymph % (Auto) [place] % (Auto) Eos % (Auto) Baso % (Auto) Gran # Lymph # (Auto) [place] # (Auto) Eos # (Auto) Baso # (Auto) Sodium Potassium Chloride Carbon Dioxide Anion Gap BUN Creatinine Est GFR ( Amer) Est GFR (Non-Af Amer) Random Glucose Hemoglobin A1c 12.0 H Calcium Total Bilirubin GGT AST ALT Alkaline Phosphatase Total Protein Albumin Globulin Albumin/Globulin Ratio Triglycerides Cholesterol LDL Cholesterol Direct HDL Cholesterol Vitamin B12 620 Procalcitonin Urine Color Yellow Urine Appearance Sl cloudy Urine pH 6.0 Ur Specific [place] >= 1.030 Urine Protein 30 H Urine Glucose (UA) 500 H Urine Ketones 40 H Urine Blood Trace-intact H Urine Nitrate Negative Urine Bilirubin Negative Urine Urobilinogen 0.2 Ur Leukocyte Esterase Negative Urine RBC 2 - 5 Urine WBC 25 - 30 Ur Epithelial Cells 10 - 12 Urine Bacteria Mod RPR 05/19/18 05/19/18 05/19/18 06:05 06:05 06:05 WBC 9.2 D RBC 4.88 Hgb 13.3 Hct 39.7 MCV 81.4 MCH 27.3 MCHC 33.5 RDW 11.7 Plt Count 368 MPV 9.6 Gran % 62.3 Lymph % (Auto) 26.1 [place] % (Auto) 10.8 H Eos % (Auto) 0.5 L Baso % (Auto) 0.3 Gran # 5.69 Lymph # (Auto) 2.4 [place] # (Auto) 1.0 H Eos # (Auto) 0.1 Baso # (Auto) 0.03 Sodium 137 Potassium 3.4 L Chloride 105 Carbon Dioxide 27 Anion Gap 9 L BUN 12 Creatinine 0.4 L Est GFR ( Amer) > 60 Est GFR (Non-Af Amer) > 60 Random Glucose 181 H Hemoglobin A1c Calcium 8.4 Total Bilirubin 0.7 GGT AST 23 ALT 29 Alkaline Phosphatase 116 Total Protein 6.9 Albumin 3.5 Globulin 3.4 Albumin/Globulin Ratio 1.0 L Triglycerides 151 Cholesterol 207 H LDL Cholesterol Direct 138 H HDL Cholesterol 36 Vitamin B12 Procalcitonin Urine Color Urine Appearance Urine pH Ur Specific [place] Urine Protein Urine Glucose (UA) Urine Ketones Urine Blood Urine Nitrate Urine Bilirubin Urine Urobilinogen Ur Leukocyte Esterase Urine RBC Urine WBC Ur Epithelial Cells Urine Bacteria RPR Nonreactive 05/19/18 05/19/18 05/19/18 07:00 07:00 12:00 WBC RBC Hgb Hct MCV MCH MCHC RDW Plt Count MPV Gran % Lymph % (Auto) [place] % (Auto) Eos % (Auto) Baso % (Auto) Gran # Lymph # (Auto) [place] # (Auto) Eos # (Auto) Baso # (Auto) Sodium Potassium Chloride Carbon Dioxide Anion Gap BUN Creatinine Est GFR ( Amer) Est GFR (Non-Af Amer) Random Glucose Hemoglobin A1c Calcium Total Bilirubin GGT 110 H AST ALT Alkaline Phosphatase Total Protein Albumin Globulin Albumin/Globulin Ratio Triglycerides Cholesterol LDL Cholesterol Direct HDL Cholesterol Vitamin B12 Procalcitonin 0.07 L Urine Color Yellow Urine Appearance Sl cloudy Urine pH 6.0 Ur Specific [place] 1.025 Urine Protein Negative Urine Glucose (UA) 250 H Urine Ketones 40 H Urine Blood Trace-lysed H Urine Nitrate Negative Urine Bilirubin Negative Urine Urobilinogen 0.2 Ur Leukocyte Esterase Small H Urine RBC 0 - 2 Urine WBC 5 - 10 Ur Epithelial Cells Many Urine Bacteria Mod RPR Attending/Attestation - Attestation I have personally seen and examined this patient.: Yes I have fully participated in the care of the patient.: Yes I have reviewed all pertinent clinical information: Yes Notes (Text): 05/19/18 18:00 I agree with the assessment and plan. Will continue stroke work-up and management.
[2018-05-19 12:12] LABS: URINE BILIRUBIN NEGATIVE (NEGATIVE); URINE BLOOD TRACE-LYSED (NEGATIVE); URINE GLUCOSE (UA) 250 mg/dL (NEGATIVE); URINE LEUKOCYTE ESTERASE SMALL Leu/uL (NEGATIVE); URINE PROTEIN NEGATIVE mg/dL (<30 mg/dL); URINE UROBILINOGEN 0.2 E.U./dL (<1 E.U./dL)
[2018-05-19 12:13] LABS: URINE APPEARANCE SL CLOUDY (CLEAR); URINE COLOR YELLOW (YELLOW)
[2018-05-19 12:40] LABS: URINE BACTERIA MOD (NEG); URINE EPITHELIAL CELLS MANY /hpf (0-5)
[2018-05-19 12:47] LABS: URINE RBC 0 - 2 /hpf (0-2)
--- NOTE | 2018-05-19 12:57 | CT ---
Date of service: 05/18/2018 PROCEDURE: CT Angiography of the Brain. HISTORY: r/o stroke COMPARISON: None available. TECHNIQUE: CT angiography of the intracranial arteries was performed. Coronal and sagittal maximum intensity projection reformated images were generated. Radiation dose: Total exam DLP = 586.99 mGy-cm. This CT exam was performed using one or more of the following dose reduction techniques: Automated exposure control, adjustment of the mA and/or kV according to patient size, and/or use of iterative reconstruction technique. FINDINGS: INTERNAL CEREBRAL ARTERIES: Unremarkable. The skull base, petrous, cavernous and supraclinoid segments are bilaterally widely patent. ANTERIOR CEREBRAL ARTERIES: Unremarkable. A1 and A2 segments are widely patent. Smaller distal branches unremarkable, as visualized. MIDDLE CEREBRAL ARTERIES: Unremarkable. M1 and M2 segments are widely patent. Perisylvian branches grossly symmetric. POSTERIOR CIRCULATION: Basilar Artery: Unremarkable. Distal Vertebral Arteries: Unremarkable. Posterior Cerebral Arteries: Unremarkable. Posterior Inferior Cerebellar Arteries: Unremarkable. ANEURYSM/ VASCULAR MALFORMATIONS: None. OTHER FINDINGS: None. IMPRESSION: Unremarkable CT Angiography of the Brain. Date of service: 05/18/2018 PROCEDURE: CT Angiography of the neck with contrast HISTORY: r/o stroke COMPARISON: None. TECHNIQUE: Contiguous axial images of the neck were obtained from the level of the skull-base to the superior mediastinum in the arteriographic phase of enhancement. Coronal and sagittal reformats or also generated. IV contrast dose: Radiation dose: Total exam DLP = 586.99 mGy-cm. This CT exam was performed using one or more of the following dose reduction techniques: Automated exposure control, adjustment of the mA and/or kV according to patient size, and/or use of iterative reconstruction technique. FINDINGS: RIGHT CAROTID ARTERIES: Common Carotid Artery: Normal. Carotid Bifurcation: Normal. Internal Carotid Artery:Normal. External Carotid Artery (proximal branches): Normal. LEFT CAROTID ARTERIES: Common Carotid Artery: Normal. Carotid Bifurcation: Normal. Internal Carotid Artery:Normal. External Carotid Artery (proximal branches): Normal. VERTEBRAL ARTERIES: Right Vertebral Artery: Normal. Left Vertebral Artery: Normal. OTHER FINDINGS: no aortic atherosclerotic calcification or mural plaque present. IMPRESSION: Normal CT Angiography of the neck.
[2018-05-19] MEDS ORDERED: Gadodiamide 287 MG/ML VIAL (15ML) IV ONE (13:35)
--- NOTE | 2018-05-19 14:27 | MRI ---
Date of service: 05/19/2018 PROCEDURE: MRI BRAIN WITH AND WITHOUT CONTRAST HISTORY: r/o stroke COMPARISON: None available. TECHNIQUE: Multiplanar, multisequence MR images of the brain were obtained with and without intravenous contrast enhancement. FINDINGS: HEMORRHAGE: None DWI: Two areas of diffusion-weighted abnormality with associated abnormal signal on FLAIR imaging in the left cuellar radiata measuring 1.3 and 1.5 centimeters consistent with acute infarcts. No significant mass effect. BRAIN PARENCHYMA: No mass,mass effect or edema. No atrophy or chronic microvascular ischemic changes. ENHANCEMENT: No abnormal intracranial enhancement. VENTRICLES: Unremarkable. No hydrocephalus. CRANIUM: Unremarkable. ORBITS: Grossly unremarkable. PARANASAL SINUSES/MASTOIDS: Clear VASCULAR SYSTEM: Skull base flow voids intact. OTHER FINDINGS: None . IMPRESSION: Two areas of diffusion-weighted abnormality with associated abnormal signal on FLAIR imaging in the left cuellar radiata measuring 1.3 and 1.5 centimeters consistent with acute infarcts. No significant mass effect.
[2018-05-20] MEDS: Insulin Reg-MEDIUM-Coverage SC SCH ×5 (05:26→22:32)
[2018-05-20] MEDS: Sodium Chloride 0.9% 1,000 ML IV SCH ×3 (05:45→17:29)
[2018-05-20 06:41] LABS: BASO # 0.03 K/mm3 (0.0-2.0); BASO % 0.3 % (0.0-3.0); EOS # 0.1 (0.0-0.7); EOS % 0.8 % (1.5-5.0); GRAN # 6.34 (1.4-6.5); GRAN % 71.7 % (50.0-68.0); LYMPH # 1.4 (1.2-3.4); LYMPH % 16.3 % (22.0-35.0); MEAN CORPUSCULAR HEMOGLOBIN 27.1 pg (25.0-35.0); MEAN CORPUSCULAR HGB CONC 33.5 g/dl (31.0-37.0); MEAN PLATELET VOLUME 9.8 fl (7.0-11.0); MONO % 10.9 % (1.0-6.0); RBC 4.79 10^6/uL (3.5-6.1); RED CELL DISTRIBUTION WIDTH 11.5 % (11.5-14.5); WHITE BLOOD COUNT 8.8 10^3/uL (4.5-11.0)
[2018-05-20 07:07] LABS: ALBUMIN 3.4 g/dL (3.0-4.8); ALT/SGPT 17 U/L (7-56); AST/SGOT 22 U/L (14-36); BLOOD UREA NITROGEN 8 mg/dL (7-21); CALCIUM 8.6 mg/dL (8.4-10.5); GFR NON-AFRICAN AMERICAN > 60
--- NOTE | 2018-05-20 07:49 | CP.PCM.PN ---
<AlvinSuzi - Last Filed: 05/20/18 15:10> Subjective - Date & Time of Evaluation Date of Evaluation: 05/20/18 Time of Evaluation: 09:10 - Subjective Subjective: internal medicine progress note for Dr. Rodriguez Patient seen and examined this am at bedside. Patient continuing to have right sided neglect and difficulty with expression of thoughts. Sh often repeats the same phrase or seems to have difficulty with word finding. She is requesting to have her potassium given PO d/t IV burning. She denies any other complaints. 12 point ROS negative at this time. Objective - Vital Signs/Intake and Output Vital Signs (last 24 hours): Temp Pulse Resp BP Pulse Ox 98.6 F 94 H 18 152/93 H 94 L 05/20/18 06:00 05/20/18 06:00 05/20/18 06:00 05/20/18 06:00 05/20/18 06:00 Intake and Output: 05/20/18 05/20/18 06:59 18:59 Intake Total 1200 Output Total 600 Balance 600 - Medications Medications: Current Medications Aspirin (Aspirin Supp) 300 mg RC DAILY [facility] Last Admin: 05/19/18 10:53 Dose: 300 mg Clopidogrel Bisulfate (Plavix) 75 mg PO DAILY [facility] Sodium Chloride (Sodium Chloride 0.9%) 1,000 mls @ 100 mls/hr IV .Q10H [facility] Last Admin: 05/20/18 05:45 Dose: 100 mls/hr Potassium Chloride (Potassium Chloride 20 Meq/100 Ml) 20 meq in 100 mls @ 50 mls/hr IVPB Q2H [facility] Stop: 05/20/18 11:59 Insulin Human Regular (Humulin R Med) 0 units SC ACHS [facility]; Protocol Last Admin: 05/20/18 05:26 Dose: Not Given Pantoprazole Sodium (Protonix Inj) 40 mg IVP DAILY [facility] Last Admin: 05/19/18 10:53 Dose: 40 mg - Labs Labs: 05/20/18 06:00 05/20/18 06:00 PT 12.5 SECONDS (9.4-12.5) 05/18/18 13:42 INR 1.09 05/18/18 13:42 APTT 25.7 Seconds (25.1-36.5) 05/18/18 13:42 - Constitutional Appears: Well, Non-toxic, No Acute Distress - Head Exam Head Exam: ATRAUMATIC, NORMOCEPHALIC - Eye Exam Eye Exam: EOMI - ENT Exam ENT Exam: Mucous Membranes Moist - Respiratory Exam Respiratory Exam: NORMAL BREATHING PATTERN - Cardiovascular Exam Cardiovascular Exam: REGULAR RHYTHM - GI/Abdominal Exam GI & Abdominal Exam: Soft. absent: Distended, Guarding, Tenderness - Extremities Exam Extremities Exam: absent: Calf Tenderness, Pedal Edema - Neurological Exam Neurological Exam: Abnormal Gait, Alert, Awake. absent: Oriented x3 (oriented to person and place but not time) Neuro motor strength exam: Left Upper Extremity: 5, Right Upper Extremity: 4, Left Lower Extremity: 5, Right Lower Extremity: 3 - Psychiatric Exam Psychiatric exam: Normal Affect, Normal Mood - Skin Skin Exam: Dry, Intact, Normal Color, Warm Assessment and Plan - Assessment and Plan (Free Text) Assessment: 63 yr F with Infarcts on MRI brain to left cuellar radiata and parietal subcortical white matter with expressive aphasia and right sided weakness Plan: Expressive aphasia -CTH-discrete round low-density lesions in left posterior cuellar radiata and parietal subcortical white matter. -Neuro on consult, recs appreciated -Aspirin and plavix daily - bite size advance and thin diet placed per [facility] recs - NS @ 100 until diet given -PT/OT -Aspiration/Seizure/Fall precautions -CTA head/neck negative for current aneurysm, stenosis or occlusion -HOB 45 degrees -Brain MRI: showing -Lipitor 40 mg Daily started Mild Hypokalemia - repleted - repeat labs in am IDDM -HgA1C 12 -ISS-med -Diabetic education Leukocytosis (normalized/resolved) - Monitor, possibly reactive - Blood/Urine cultures sent - UA neg nitrates and LE - afebrile DVT/GI ppx: SCDs/Protonix Dispo: Awaiting Acute rehab placement Case seen and discussed with Dr. Jennifer Esquivel, PGY 1 <Tiffani Rodriguez - Last Filed: 05/22/18 14:37> Objective - Vital Signs/Intake and Output Vital Signs (last 24 hours): Temp Pulse Resp BP Pulse Ox 97.8 F 82 18 149/88 99 05/22/18 12:00 05/22/18 13:48 05/22/18 12:00 05/22/18 12:00 05/22/18 06:00 Intake and Output: 05/22/18 05/22/18 06:59 18:59 Intake Total 540 Output Total 700 Balance -160 - Medications Medications: Current Medications Aspirin (Aspirin Chewable) 81 mg PO DAILY [facility] Last Admin: 05/22/18 09:59 Dose: 81 mg Atorvastatin Calcium (Lipitor) 40 mg PO DIN [facility] Last Admin: 05/21/18 17:44 Dose: 40 mg Clopidogrel Bisulfate (Plavix) 75 mg PO DAILY [facility] Last Admin: 05/22/18 09:59 Dose: 75 mg Insulin Human Regular (Humulin R Med) 0 units SC ACHS [facility]; Protocol Last Admin: 05/22/18 11:52 Dose: 3 unit Pantoprazole Sodium (Protonix Ec Tab) 40 mg PO ACB [facility] Last Admin: 05/22/18 09:59 Dose: 40 mg - Labs Labs: 05/22/18 07:30 05/22/18 07:30 PT 12.5 SECONDS (9.4-12.5) 05/18/18 13:42 INR 1.09 05/18/18 13:42 APTT 25.7 Seconds (25.1-36.5) 05/18/18 13:42 Attending/Attestation - Attestation I have personally seen and examined this patient.: Yes I have fully participated in the care of the patient.: Yes I have reviewed all pertinent clinical information, including history, physical exam and plan: Yes Notes (Text): 05/22/18 14:21 attending note; Patient seen and examined with resident. Patient's family by the bedside. still with significant expressive aphasia. Patient is a 63 -year-old Montenegrin-speaking female with unknown past medical history who presents with family members with complaints of patient having marked trouble with talking. Most of history was obtained from patient's daughter as patient was unable to communicate well. acute CVA; MRI showed Infarcts on left cuellar radiata and parietal subcortical white matter. CT head showed discrete round low-density lesions in left posterior cuellar radiata and parietal subcortical white matter. neurology evaluation appreciated. CTA Of head and neck is negative for any acute stenosis. continue aspirin, Plavix and Lipitor. Speech and swallow evaluation appreciated. Continue dysphagia diet. Continue aggressive speech therapy. hyperlipidemia; continue Lipitor. Elevated glucose level; continue regular insulin sliding scale. Hemoglobin A1c ordered. Will start oral hypoglycemic agent as needed. low carbohydrate content diet ordered. Echocardiogram showed normal LV function and mild pulmonary hypertension. Physical therapy appreciated. Patient with significant gait abnormality. Occupational therapy ordered. The diagnosis, follow-up plan discussed with family in detail. 05/22/18 14:22 05/22/18 14:36 05/22/18 14:37
--- NOTE | 2018-05-20 10:19 | CP.PCM.PN ---
<Jaret Donato - Last Filed: 05/20/18 13:58> Subjective - Date & Time of Evaluation Date of Evaluation: 05/20/18 Time of Evaluation: 10:15 - Subjective Subjective: Neurology Progress Note for Dr. Jones Patient seen and examined at bedside. No acute overnight events. Patient responding commands better today, also aphasia is improved. Patient denied CP, SOB, n/v/d, abdominal pain, fever, chills, SHAFFER, or dizziness. Objective - Vital Signs/Intake and Output Vital Signs (last 24 hours): Temp Pulse Resp BP Pulse Ox 98.6 F 94 H 18 152/93 H 94 L 05/20/18 06:00 05/20/18 06:00 05/20/18 06:00 05/20/18 06:00 05/20/18 06:00 Intake and Output: 05/20/18 05/20/18 06:59 18:59 Intake Total 1200 Output Total 600 Balance 600 - Medications Medications: Current Medications Aspirin (Aspirin Chewable) 81 mg PO DAILY [facility] Last Admin: 05/20/18 09:58 Dose: 81 mg Atorvastatin Calcium (Lipitor) 40 mg PO DIN [facility] Clopidogrel Bisulfate (Plavix) 75 mg PO DAILY [facility] Last Admin: 05/20/18 09:57 Dose: 75 mg Sodium Chloride (Sodium Chloride 0.9%) 1,000 mls @ 100 mls/hr IV .Q10H [facility] Last Admin: 05/20/18 09:58 Dose: 100 mls/hr Potassium Chloride (Potassium Chloride 20 Meq/100 Ml) 20 meq in 100 mls @ 50 mls/hr IVPB Q2H [facility] Stop: 05/20/18 11:59 Last Admin: 05/20/18 09:58 Dose: 50 mls/hr Insulin Human Regular (Humulin R Med) 0 units SC ACHS [facility]; Protocol Last Admin: 05/20/18 08:28 Dose: Not Given Pantoprazole Sodium (Protonix Inj) 40 mg IVP DAILY [facility] Last Admin: 05/20/18 09:57 Dose: 40 mg - Labs Labs: 05/20/18 06:00 05/20/18 06:00 PT 12.5 SECONDS (9.4-12.5) 05/18/18 13:42 INR 1.09 05/18/18 13:42 APTT 25.7 Seconds (25.1-36.5) 05/18/18 13:42 - Constitutional Appears: No Acute Distress - Head Exam Head Exam: NORMAL INSPECTION - Eye Exam Eye Exam: Normal appearance - ENT Exam ENT Exam: Mucous Membranes Moist - Neck Exam Neck Exam: Normal Inspection - Respiratory Exam Respiratory Exam: Clear to Ausculation Bilateral, NORMAL BREATHING PATTERN - Cardiovascular Exam Cardiovascular Exam: REGULAR RHYTHM - GI/Abdominal Exam GI & Abdominal Exam: Soft, Normal Bowel Sounds - Back Exam Back Exam: NORMAL INSPECTION - Neurological Exam Neurological Exam: Alert, Awake, CN II-XII Intact Neuro motor strength exam: Left Upper Extremity: 5, Right Upper Extremity: 4, Left Lower Extremity: 5, Right Lower Extremity: 4 Additional comments: upgoing babinski right, brisk right patella reflex - Skin Skin Exam: Normal Color Assessment and Plan - Assessment and Plan (Free Text) Assessment: 63 yo F with PMH of HTN and DM presents to [place] with expressive aphasia was found to have 2 hypointense areas in left cuellar radiata on MRI consistent with CVA. Plan: - CT head showed hypodense lesions in the left posterior cuellar radiata and parietal subcortical white matter - MRI brain showed 2 areas in left cuellar radiata consistent with CVA - Echo ordered - UDS negative - CTA head/neck negative - Cont ASA, plavix, statin - PT/OT Patient discussed in detail with Dr. Jones. Errol Donato DO PGY2 <Raz Jones - Last Filed: 05/22/18 13:41> Objective - Vital Signs/Intake and Output Vital Signs (last 24 hours): Temp Pulse Resp BP Pulse Ox 97.8 F 82 18 149/88 99 05/22/18 12:00 05/22/18 12:00 05/22/18 12:00 05/22/18 12:00 05/22/18 06:00 Intake and Output: 05/22/18 05/22/18 06:59 18:59 Intake Total 540 Output Total 700 Balance -160 - Medications Medications: Current Medications Aspirin (Aspirin Chewable) 81 mg PO DAILY [facility] Last Admin: 05/22/18 09:59 Dose: 81 mg Atorvastatin Calcium (Lipitor) 40 mg PO DIN [facility] Last Admin: 05/21/18 17:44 Dose: 40 mg Clopidogrel Bisulfate (Plavix) 75 mg PO DAILY [facility] Last Admin: 05/22/18 09:59 Dose: 75 mg Insulin Human Regular (Humulin R Med) 0 units SC ACHS [facility]; Protocol Last Admin: 05/22/18 11:52 Dose: 3 unit Pantoprazole Sodium (Protonix Ec Tab) 40 mg PO ACB [facility] Last Admin: 05/22/18 09:59 Dose: 40 mg - Labs Labs: 05/22/18 07:30 05/22/18 07:30 PT 12.5 SECONDS (9.4-12.5) 05/18/18 13:42 INR 1.09 05/18/18 13:42 APTT 25.7 Seconds (25.1-36.5) 05/18/18 13:42 Attending/Attestation - Attestation I have personally seen and examined this patient.: Yes I have fully participated in the care of the patient.: Yes I have reviewed all pertinent clinical information, including history, physical exam and plan: Yes Notes (Text): 05/22/18 13:40 I agree with the assessment and plan. DWI changes consistent with acute ischemic stroke. I recommend the following: - CTA head/neck negative - Cont ASA, plavix, statin - PT/OT
[2018-05-20] MEDS: Potassium Chloride 20 mEq ER Tab PO STA (11:12)
--- NOTE | 2018-05-20 17:48 | CARD ---
APPROVED REPORT Date of service: 05/20/2018 EXAM: Two-dimensional and M-mode echocardiogram with Doppler and color Doppler. INDICATION CVA/TIA 2D DIMENSIONS Left Atrium (2D)3.4 (1.6-4.0cm)IVSd0.8 (0.7-1.1cm) LVDd3.7 (3.9-5.9cm)PWd0.9 (0.7-1.1cm) LVDs2.4 (2.5-4.0cm)FS (%) 35.9 % LVEF (%)66.3 (>50%) M-Mode DIMENSIONS Aortic Root2.40 (2.2-3.7cm)Aortic Cusp Exc.1.50 (1.5-2.0cm) Aortic Valve AoV Peak Acwercxv634.0cm/Shantel Peak GR.14mmHg Mitral Valve MV E Iqrrjush59.0cm/sMV A Anixnfgj69.8cm/sE/A ratio0.8 TDI Lateral E' Peak V9.26cm/sMedial E' Peak V6.34cm/sE/Lateral E'8.5 E/Medial E'12.5 Pulmonary Valve PV Peak Tfjzhzih11.0cm/sPV Peak Grad.3mmHg Tricuspid Valve TR Peak [id number]/sRAP [id number] Peak Gr.25mmHg [id number] LEFT VENTRICLE The left ventricle is normal size. There is normal left ventricular wall thickness. The left ventricular function is normal. The left ventricular ejection fraction is within the normal range. There is normal LV segmental wall motion. Transmitral Doppler flow pattern is Grade I-abnormal relaxation pattern. RIGHT VENTRICLE The right ventricle is normal size. There is normal right ventricular wall thickness. The right ventricular systolic function is normal. ATRIA The left atrium size is normal. The right atrium size is normal. AORTIC VALVE The aortic valve is mildly thickened. There is trace aortic regurgitation. There is no aortic valvular stenosis. MITRAL VALVE The mitral valve is mildly thickened. Mitral regurgitation is trace. TRICUSPID VALVE There is mild tricuspid regurgitation. There is mild pulmonary hypertension. PULMONIC VALVE The pulmonary valve is normal in structure. There is no pulmonic valvular regurgitation. There is no pulmonic valvular stenosis. GREAT VESSELS The aortic root is normal in size. The IVC is normal in size and collapses >50% with inspiration. PERICARDIAL EFFUSION There is no pericardial effusion. <Conclusion> The left ventricle is normal size. There is normal left ventricular wall thickness. The left ventricular function is normal. The left ventricular ejection fraction is within the normal range. There is normal LV segmental wall motion. Transmitral Doppler flow pattern is Grade I-abnormal relaxation pattern. There is mild tricuspid regurgitation. There is mild pulmonary hypertension.
[2018-05-21] MEDS: Insulin Reg-MEDIUM-Coverage SC SCH ×4 (08:03→21:55)
[2018-05-21] MEDS: Sodium Chloride 0.9% 1,000 ML IV SCH (08:05)
[2018-05-21] MEDS: Pantoprazole 40 mg EC Tab PO SCH (08:05)
[2018-05-21 08:06] LABS: BASO # 0.03 K/mm3 (0.0-2.0); BASO % 0.5 % (0.0-3.0); EOS # 0.2 (0.0-0.7); EOS % 2.3 % (1.5-5.0); GRAN # 3.31 (1.4-6.5); GRAN % 51.4 % (50.0-68.0); HEMOGLOBIN 13.4 g/dL (12.0-16.0); LYMPH # 2.2 (1.2-3.4); LYMPH % 34.4 % (22.0-35.0); MEAN CELL VOLUME 80.5 fl (80.0-105.0); MEAN CORPUSCULAR HEMOGLOBIN 27.9 pg (25.0-35.0); MEAN CORPUSCULAR HGB CONC 34.6 g/dl (31.0-37.0); MEAN PLATELET VOLUME 9.3 fl (7.0-11.0); MONO # 0.7 (0.1-0.6); MONO % 11.4 % (1.0-6.0); RBC 4.81 10^6/uL (3.5-6.1); RED CELL DISTRIBUTION WIDTH 11.6 % (11.5-14.5); WHITE BLOOD COUNT 6.4 10^3/uL (4.5-11.0)
[2018-05-21 08:31] LABS: ALB/GLOB RATIO 1.2 (1.1-1.8); ALBUMIN 3.6 g/dL (3.0-4.8); ALT/SGPT 23 U/L (7-56); AST/SGOT 22 U/L (14-36); BLOOD UREA NITROGEN 6 mg/dL (7-21); CALCIUM 8.5 mg/dL (8.4-10.5); GFR NON-AFRICAN AMERICAN > 60
[2018-05-21] MEDS ORDERED: Potassium Chloride 40 mEq/30 ml LIQ UD PO ONE (10:51)
--- NOTE | 2018-05-21 12:41 | CP.PCM.PN ---
<Benjamín Douglass - Last Filed: 05/21/18 12:38> Subjective - Date & Time of Evaluation Date of Evaluation: 05/21/18 Time of Evaluation: 09:15 - Subjective Subjective: Medicine Progress Note for Hospitalist Service, Dr. Phuong Douglass, DO PGY-1 Pt seen and examined at bedside this am. Denies any acute complaints, states she is feeling well. Admits to ambulating with assistance out of bed and to [place]. No acute events reported overnight by staff. Otherwise denies chest pain, sob, n/v/d/c, abd pain, urinary complaints, or other symptoms currently. Objective - Vital Signs/Intake and Output Vital Signs (last 24 hours): Temp Pulse Resp BP Pulse Ox 97.8 F 88 20 145/84 95 05/21/18 06:00 05/21/18 06:00 05/21/18 06:00 05/21/18 06:00 05/21/18 06:00 Intake and Output: 05/21/18 05/21/18 06:59 18:59 Intake Total 240 Output Total 1100 Balance -860 - Medications Medications: Current Medications Aspirin (Aspirin Chewable) 81 mg PO DAILY [facility] Last Admin: 05/21/18 09:50 Dose: 81 mg Atorvastatin Calcium (Lipitor) 40 mg PO DIN [facility] Last Admin: 05/20/18 17:28 Dose: 40 mg Clopidogrel Bisulfate (Plavix) 75 mg PO DAILY [facility] Last Admin: 05/21/18 09:50 Dose: 75 mg Insulin Human Regular (Humulin R Med) 0 units SC [facility]; Protocol Last Admin: 05/21/18 08:03 Dose: Not Given Pantoprazole Sodium (Protonix Ec Tab) 40 mg PO ACB [facility] Last Admin: 05/21/18 08:05 Dose: 40 mg - Labs Labs: 05/21/18 07:30 05/21/18 07:30 PT 12.5 SECONDS (9.4-12.5) 05/18/18 13:42 INR 1.09 05/18/18 13:42 APTT 25.7 Seconds (25.1-36.5) 05/18/18 13:42 - Constitutional Appears: Non-toxic, No Acute Distress - Head Exam Head Exam: ATRAUMATIC, NORMOCEPHALIC - Eye Exam Eye Exam: EOMI, Normal appearance, PERRL - ENT Exam ENT Exam: Mucous Membranes Moist - Respiratory Exam Respiratory Exam: Clear to Ausculation Bilateral, NORMAL BREATHING PATTERN. absent: Rales, Rhonchi, Wheezes - Cardiovascular Exam Cardiovascular Exam: REGULAR RHYTHM, +S1, +S2. absent: Gallop, Rubs, Murmur - GI/Abdominal Exam GI & Abdominal Exam: Soft, Normal Bowel Sounds. absent: Distended, Guarding, Tenderness, Organomegaly - Extremities Exam Extremities Exam: Normal Capillary Refill, Normal Inspection. absent: Joint Swelling, Pedal Edema - Neurological Exam Neurological Exam: Alert, Awake, CN II-XII Intact, Oriented x3 - Psychiatric Exam Psychiatric exam: Normal Affect, Normal Mood - Skin Skin Exam: Dry, Intact, Warm Assessment and Plan - Assessment and Plan (Free Text) Assessment: 63 y o F PMhx IDDM, with expressive aphasia and right sided weakness, admitted for CVA. Plan: Expressive aphasia 2/2 CVA -CT Head 05/18: discrete round low-density lesions in left posterior cuellar radiata and parietal subcortical white matter -Neuro consulted (Dr. Jones), recs appreciated -Aspirin and Plavix daily - Bite size advance and thin diet placed per [facility] [facility] recs - IVF d/c'd - PT/OT -Aspiration/Seizure/Fall precautions -CTA head/neck 05/18 negative for current aneurysm, stenosis or occlusion -HOB 45 degrees -Brain MRI 05/19 demonstrates 2 areas of diffusion-weighted abnormality with associated abnormal signal on FLAIR imaging in the L cuellar radiata measuring 1.3 and 1.5 cm consistent with acute infarcts; no significant mass effect -Echo 05/20: normal LV function, mild tricuspid regurgitation, mild pulmonary HTN -Lipitor 40 mg daily Hypokalemia - K 3.2 today, s/p repletion - Will f/u repeat labs IDDM -HgA1C 12 -ISS-med -Diabetic education Leukocytosis - resolved - Monitor, possibly reactive - Blood cx 05/18 no growth after 48 hrs; urine cx 05/19 final negative - UA neg for nitrates and LE - Afebrile DVT/GI ppx: SCDs/Protonix Dispo: Awaiting acute rehab placement Pt seen, examined with, and plan discussed with Dr. Dubon, attending physician. Benjamín Douglass DO PGY-1, Change Management Administrator Pager #[phone] <Phuong Dubon R - Last Filed: 05/22/18 12:51> Objective - Vital Signs/Intake and Output Vital Signs (last 24 hours): Temp Pulse Resp BP Pulse Ox 97.8 F 82 18 149/88 99 05/22/18 12:00 05/22/18 12:00 05/22/18 12:00 05/22/18 12:00 05/22/18 06:00 Intake and Output: 05/22/18 05/22/18 06:59 18:59 Intake Total 540 Output Total 700 Balance -160 - Medications Medications: Current Medications Aspirin (Aspirin Chewable) 81 mg PO DAILY [facility] Last Admin: 05/22/18 09:59 Dose: 81 mg Atorvastatin Calcium (Lipitor) 40 mg PO DIN [facility] Last Admin: 05/21/18 17:44 Dose: 40 mg Clopidogrel Bisulfate (Plavix) 75 mg PO DAILY [facility] Last Admin: 05/22/18 09:59 Dose: 75 mg Insulin Human Regular (Humulin R Med) 0 units SC ACHS [facility]; Protocol Last Admin: 05/22/18 11:52 Dose: 3 unit Pantoprazole Sodium (Protonix Ec Tab) 40 mg PO ACB [facility] Last Admin: 05/22/18 09:59 Dose: 40 mg - Labs Labs: 05/22/18 07:30 05/22/18 07:30 PT 12.5 SECONDS (9.4-12.5) 05/18/18 13:42 INR 1.09 05/18/18 13:42 APTT 25.7 Seconds (25.1-36.5) 05/18/18 13:42 Attending/Attestation - Attestation I have personally seen and examined this patient.: Yes I have fully participated in the care of the patient.: Yes I have reviewed all pertinent clinical information, including history, physical exam and plan: Yes Notes (Text): Patient seen and examined by me with resident at 9:05AM on 05/21/18. Case including HPI, physical exam, and assessment and plan discussed with resident. Agree with above with following additions/corrections. Patient is 63 year old female with unknown past medical history that presented to the emergency room with difficulty talking and change in speech. Patient states that she is feeling ok. States she has ambulated a little near her room. Patient denies any chest pain or shortness of breath. No nausea, vomiting, or abdominal pain. No diarrhea or constipation. No fevers or chills. She denies any dysuria or burning with urination. No headaches or dizziness. No change in vision. Physical exam: General: Awake and alert lying in bed in no acute distress HEENT: Normocephalic, atraumatic. Extraocular muscles intact, pupils equal and reactive, no scleral icterus. Oropharynx is pink moist. Neck is supple. Cardiovascular: Normal rhythm. Normal S1 and S2. No murmurs, rubs, or gallops appreciated Pulmonary: Normal respiratory effort. No rhonchi, rales, or wheezing appreciated Gastrointestinal: Soft, nondistended. Nontender. Positive bowel sounds all 4 quadrants. No guarding. Globular abdomen. Musculoskeletal: Moves all extremities. No edema appreciated. No calf tenderness. No CVA tenderness. Central nervous system: AAO 3. CN2-12 grossly intact. Positive expressive aphasia. Dermatologic: Skin warm and dry. Assessment and plan: Patient is 63 year old female with unknown past medical history that presented to the emergency room with difficulty talking and change in speech. 1. Acute CVA with expressive aphasia. Continue ASA, Plavix, and Lipitor. Head CT on 05/18/18 per radiologist showed discrete round low-density lesions in the left posterior cuellar radiate and parietal subcortical white matter. CTA head and neck per radiologist showed unremarkable CT angiography of Brain and Neck. Brain MRI per radiologist showed two areas of diffusion-weighted abnormality with associated abnormal signal on FLAIR imaging in the left cuellar radiate zahra uring 1.3 and 1.5 cm consistent with acute infarcts, no significant mass effect. Neurology following, recommendations appreciated. Continue physical therapy. Continue speech therapy. Pending rehab placement. 2. Hypokalemia. Replace with oral potassium. Follow up repeat labs in AM. 3. Insulin dependent DM2. Continue insulin sliding scale. Continue to monitor accuchecks. Diabetic educations. HgbA1C 12. 4. Hypercholesterolemia. Continue Lipitor 5. GI/DVT prophylaxis. Protonix/SCDs 6. Patient is a full code. Case was discussed in detail with patient regarding current diagnosis and treatment plan. All questions answered.
[2018-05-21] MEDS: Potassium Chloride 20 mEq ER Tab PO STA (14:17)
[2018-05-22 08:08] LABS: BASO # 0.03 K/mm3 (0.0-2.0); BASO % 0.2 % (0.0-3.0); EOS # 0.1 (0.0-0.7); EOS % 0.6 % (1.5-5.0); GRAN # 10.72 (1.4-6.5); GRAN % 77.8 % (50.0-68.0); HEMOGLOBIN 13.6 g/dL (12.0-16.0); LYMPH # 1.7 (1.2-3.4); LYMPH % 12.6 % (22.0-35.0); MEAN CELL VOLUME 80.4 fl (80.0-105.0); MEAN CORPUSCULAR HEMOGLOBIN 27.4 pg (25.0-35.0); MEAN CORPUSCULAR HGB CONC 34.1 g/dl (31.0-37.0); MEAN PLATELET VOLUME 9.6 fl (7.0-11.0); MONO # 1.2 (0.1-0.6); MONO % 8.8 % (1.0-6.0); RBC 4.96 10^6/uL (3.5-6.1); RED CELL DISTRIBUTION WIDTH 11.6 % (11.5-14.5); WHITE BLOOD COUNT 13.8 10^3/uL (4.5-11.0)
[2018-05-22 09:00] LABS: ALBUMIN 3.5 g/dL (3.0-4.8); ALT/SGPT 21 U/L (7-56); AST/SGOT 21 U/L (14-36); BLOOD UREA NITROGEN 9 mg/dL (7-21); GFR NON-AFRICAN AMERICAN > 60
[2018-05-22] MEDS: Insulin Reg-MEDIUM-Coverage SC SCH ×4 (09:54→23:22)
[2018-05-22] MEDS: Pantoprazole 40 mg EC Tab PO SCH (09:59)
--- NOTE | 2018-05-22 12:04 | CP.PCM.PN ---
Subjective - Date & Time of Evaluation Date of Evaluation: 05/22/18 Time of Evaluation: 09:15 - Subjective Subjective: Medicine Progress Note for Hospitalist Service, Dr. Jennifer Douglass, DO PGY-1 Pt seen and examined at bedside this am. Denies any acute complaints currently, resting comfortably at bedside. No acute events reported overnight by staff. Denies headache, chest pain, sob, n/v/d/c, abd pain, urinary complaints, or oth er symptoms. Objective - Vital Signs/Intake and Output Vital Signs (last 24 hours): Temp Pulse Resp BP Pulse Ox 98.7 F 62 19 142/78 99 05/22/18 06:00 05/22/18 08:21 05/22/18 06:00 05/22/18 06:00 05/22/18 06:00 Intake and Output: 05/22/18 05/22/18 06:59 18:59 Intake Total 540 Output Total 700 Balance -160 - Medications Medications: Current Medications Aspirin (Aspirin Chewable) 81 mg PO DAILY [facility] Last Admin: 05/22/18 09:59 Dose: 81 mg Atorvastatin Calcium (Lipitor) 40 mg PO DIN [facility] Last Admin: 05/21/18 17:44 Dose: 40 mg Clopidogrel Bisulfate (Plavix) 75 mg PO DAILY [facility] Last Admin: 05/22/18 09:59 Dose: 75 mg Insulin Human Regular (Humulin R Med) 0 units SC ACHS [facility]; Protocol Last Admin: 05/22/18 11:52 Dose: 3 unit Pantoprazole Sodium (Protonix Ec Tab) 40 mg PO ACB [facility] Last Admin: 05/22/18 09:59 Dose: 40 mg - Labs Labs: 05/22/18 07:30 05/22/18 07:30 PT 12.5 SECONDS (9.4-12.5) 05/18/18 13:42 INR 1.09 05/18/18 13:42 APTT 25.7 Seconds (25.1-36.5) 05/18/18 13:42 - Constitutional Appears: Non-toxic, No Acute Distress - Head Exam Head Exam: ATRAUMATIC, NORMOCEPHALIC - Eye Exam Eye Exam: EOMI, Normal appearance, PERRL - ENT Exam ENT Exam: Mucous Membranes Moist - Respiratory Exam Respiratory Exam: Clear to Ausculation Bilateral, NORMAL BREATHING PATTERN. absent: Rales, Rhonchi, Wheezes - Cardiovascular Exam Cardiovascular Exam: REGULAR RHYTHM, +S1, +S2. absent: Gallop, Rubs, Murmur - GI/Abdominal Exam GI & Abdominal Exam: Soft, Normal Bowel Sounds. absent: Distended, Guarding, Tenderness, Organomegaly - Extremities Exam Extremities Exam: Normal Capillary Refill, Normal Inspection. absent: Calf Tenderness, Pedal Edema - Neurological Exam Neurological Exam: Alert, Awake, Oriented x3 - Skin Skin Exam: Dry, Intact, Normal Color, Warm Assessment and Plan - Assessment and Plan (Free Text) Assessment: 63 y o F PMhx IDDM, with expressive aphasia and right sided weakness, admitted for CVA. Plan: Expressive aphasia 2/2 CVA -CT Head 05/18: discrete round low-density lesions in left posterior cuellar radiata and parietal subcortical white matter -Neuro consulted (Dr. Jones), recs appreciated -Aspirin and Plavix daily - Bite size advance and thin diet placed per VAT WASHER recs - IVF d/c'd - PT/OT -Aspiration/Seizure/Fall precautions -CTA head/neck 05/18 negative for current aneurysm, stenosis or occlusion -HOB 45 degrees -Brain MRI 05/19 demonstrates 2 areas of diffusion-weighted abnormality with associated abnormal signal on FLAIR imaging in the L cuellar radiata measuring 1.3 and 1.5 cm consistent with acute infarcts; no significant mass effect -Echo 05/20: normal LV function, mild tricuspid regurgitation, mild pulmonary HTN -Lipitor 40 mg daily Hypokalemia - resolved - K 3.6 today - Will f/u repeat labs IDDM -HgA1C 12 -ISS-med -Diabetic education Leukocytosis - Monitor, possibly reactive; today 13.8 - Blood cx 05/18 no growth after 3 days; urine cx 05/19 final negative - UA neg for nitrates and LE - Afebrile DVT/GI ppx: SCDs/Protonix Dispo: Awaiting acute rehab placement; will follow-up with Case Management tomorrow am Pt seen, examined with, and plan discussed with Dr. Rodriguez, attending physician. Benjamín Douglass DO PGY-1, Virologist Pager #[phone]
[2018-05-23 07:16] LABS: BASO # 0.03 K/mm3 (0.0-2.0); BASO % 0.3 % (0.0-3.0); EOS # 0.1 (0.0-0.7); EOS % 1.1 % (1.5-5.0); GRAN # 6.02 (1.4-6.5); GRAN % 62.2 % (50.0-68.0); HEMOGLOBIN 13.9 g/dL (12.0-16.0); LYMPH # 2.4 (1.2-3.4); LYMPH % 24.4 % (22.0-35.0); MEAN CELL VOLUME 80.1 fl (80.0-105.0); MEAN CORPUSCULAR HEMOGLOBIN 27.4 pg (25.0-35.0); MEAN CORPUSCULAR HGB CONC 34.2 g/dl (31.0-37.0); MEAN PLATELET VOLUME 9.7 fl (7.0-11.0); MONO # 1.2 (0.1-0.6); RBC 5.08 10^6/uL (3.5-6.1); RED CELL DISTRIBUTION WIDTH 11.7 % (11.5-14.5); WHITE BLOOD COUNT 9.7 10^3/uL (4.5-11.0)
[2018-05-23 07:49] LABS: ALB/GLOB RATIO 1.1 (1.1-1.8); ALBUMIN 3.6 g/dL (3.0-4.8); ALT/SGPT 24 U/L (7-56); AST/SGOT 28 U/L (14-36); BLOOD UREA NITROGEN 12 mg/dL (7-21); CALCIUM 9.1 mg/dL (8.4-10.5); GFR NON-AFRICAN AMERICAN > 60
[2018-05-23 07:58] VITALS: BP 145/78; PULSE 81; RESP 20; TEMP 97.9; O2SAT 100
[2018-05-23] MEDS ORDERED: Potassium Chloride 20 mEq ER Tab PO STA (08:28)
[2018-05-23] MEDS: Insulin Reg-MEDIUM-Coverage SC SCH ×2 (09:34→14:04)
[2018-05-23] MEDS: Pantoprazole 40 mg EC Tab PO SCH (09:35)
--- NOTE | 2018-05-23 11:16 | CP.PCM.DIS ---
<Benjamín Douglass - Last Filed: 05/23/18 15:19> Provider - Provider Date of Admission: 05/18/18 15:57 Attending physician: Tiffani Rodriguez MD Primary care physician: Trista Irizarry MD Consults: 05/18/18 12:56 Stroke Team Consult Stat Comment: Consulting Provider: Neurohospitalist Consulting Physician: NEUROHOSP Neurohospitalist for Consult: Raz Jones Neurohospitalist for Consult: Kierra Tolentino Reason for Consult: slurred speech, confussed, slow to follow commands r/o CVA 05/18/18 23:43 Diabetic Education Referral Routine Comment: Physician Instructions: Reason For Exam: HgA1C 12 05/19/18 00:40 Social Work Referral Routine Comment: admission assessment Physician Instructions: Reason For Exam: admission assessment 05/19/18 00:56 Transition In Care/Readmission Reduction Routine Comment: Physician Instructions: Reason For Exam: admission assessment 05/19/18 06:55 Neurology Consult Routine Comment: Consulting Provider: Raz Jones Consulting Physician: Raz Jones Reason for Consult: CVA Time Spent in preparation of Discharge (in minutes): 45 Diagnosis - Discharge Diagnosis (1) Expressive aphasia Status: Acute (2) Right sided weakness Status: Acute (3) CVA (cerebral vascular accident) Status: Acute Hospital Course - Lab Results Lab Results: Micro Results 05/18/18 14:30 Blood Blood Culture - Preliminary NO GROWTH AFTER 4 DAYS 05/18/18 13:42 Blood Blood Culture - Preliminary NO GROWTH AFTER 4 DAYS 05/19/18 12:00 Urine,Clean Catch Urine Culture - Final No Growth (<1,000 CFU/ML) Most Recent Lab Values WBC 9.7 10^3/uL (4.5-11.0) D 05/23/18 07:00 RBC 5.08 10^6/uL (3.5-6.1) 05/23/18 07:00 Hgb 13.9 g/dL (12.0-16.0) 05/23/18 07:00 Hct 40.7 % (36.0-48.0) 05/23/18 07:00 MCV 80.1 fl (80.0-105.0) 05/23/18 07:00 MCH 27.4 pg (25.0-35.0) 05/23/18 07:00 MCHC 34.2 g/dl (31.0-37.0) 05/23/18 07:00 RDW 11.7 % (11.5-14.5) 05/23/18 07:00 Plt Count 396 10^3/uL (120.0-450.0) 05/23/18 07:00 MPV 9.7 fl (7.0-11.0) 05/23/18 07:00 Gran % 62.2 % (50.0-68.0) 05/23/18 07:00 Lymph % (Auto) 24.4 % (22.0-35.0) 05/23/18 07:00 Vigo % (Auto) 12.0 % (1.0-6.0) H 05/23/18 07:00 Eos % (Auto) 1.1 % (1.5-5.0) L 05/23/18 07:00 Baso % (Auto) 0.3 % (0.0-3.0) 05/23/18 07:00 Gran # 6.02 (1.4-6.5) 05/23/18 07:00 Lymph # (Auto) 2.4 (1.2-3.4) 05/23/18 07:00 [place] # (Auto) 1.2 (0.1-0.6) H 05/23/18 07:00 Eos # (Auto) 0.1 (0.0-0.7) 05/23/18 07:00 Baso # (Auto) 0.03 K/mm3 (0.0-2.0) 05/23/18 07:00 PT 12.5 SECONDS (9.4-12.5) 05/18/18 13:42 INR 1.09 05/18/18 13:42 APTT 25.7 Seconds (25.1-36.5) 05/18/18 13:42 pO2 73 mm/Hg (30-55) H 05/18/18 13:42 VBG pH 7.38 (7.32-7.43) 05/18/18 13:42 VBG pCO2 43.0 (40-60) 05/18/18 13:42 VBG HCO3 25.4 mmol/l (21-28) 05/18/18 13:42 VBG Total CO2 26.7 mmol.L (22-28) 05/18/18 13:42 VBG O2 Sat (Calc) 97.3 % (40-65) H 05/18/18 13:42 VBG Base Excess 0.0 mmol/L (0.0-2.0) 05/18/18 13:42 VBG Potassium 3.8 mmol/L (3.6-5.2) 05/18/18 13:42 Sodium 142.0 mmol/L (132-148) 05/18/18 13:42 Chloride 94.0 mmol/L (98-107) L 05/18/18 13:42 Glucose 268 mg/dl (65-105) H 05/18/18 13:42 Lactate 1.3 mmol/L (0.7-2.1) 05/18/18 13:42 FiO2 21.0 % 05/18/18 13:42 Sodium 139 mmol/L (132-148) 05/23/18 06:30 Potassium 3.4 mmol/L (3.6-5.0) L 05/23/18 06:30 Chloride 104 mmol/L (98-107) 05/23/18 06:30 Carbon Dioxide 27 mmol/L (21-33) 05/23/18 06:30 Anion Gap 11 (10-20) 05/23/18 06:30 BUN 12 mg/dL (7-21) 05/23/18 06:30 Creatinine 0.4 mg/dl (0.7-1.2) L 05/23/18 06:30 Est GFR ( Amer) > 60 05/23/18 06:30 Est GFR (Non-Af Amer) > 60 05/23/18 06:30 POC Glucose (mg/dL) 166 mg/dL (65-110) H 05/23/18 06:50 Random Glucose 182 mg/dL (70-110) H 05/23/18 06:30 Hemoglobin A1c 12.0 % (4.2-6.5) H 05/18/18 13:42 Calcium 9.1 mg/dL (8.4-10.5) 05/23/18 06:30 Phosphorus 3.7 mg/dL (2.5-4.5) 05/20/18 06:00 Magnesium 1.6 mg/dL (1.7-2.2) L 05/20/18 06:00 Total Bilirubin 0.4 mg/dL (0.2-1.3) 05/23/18 06:30 GGT 110 U/L (8-78) H 05/19/18 07:00 AST 28 U/L (14-36) 05/23/18 06:30 ALT 24 U/L (7-56) 05/23/18 06:30 Alkaline Phosphatase 111 U/L (38-126) 05/23/18 06:30 Troponin I < 0.01 ng/mL 05/18/18 13:42 Total Protein 6.9 g/dL (5.8-8.3) 05/23/18 06:30 Albumin 3.6 g/dL (3.0-4.8) 05/23/18 06:30 Globulin 3.3 gm/dL 05/23/18 06:30 Albumin/Globulin Ratio 1.1 (1.1-1.8) 05/23/18 06:30 Triglycerides 151 mg/dL (35-160) 05/19/18 06:05 Cholesterol 207 mg/dL (130-200) H 05/19/18 06:05 LDL Cholesterol Direct 138 mg/dL (0-129) H 05/19/18 06:05 HDL Cholesterol 36 mg/dL (29-60) 05/19/18 06:05 Vitamin B12 620 pg/mL (239-931) 05/18/18 15:00 Procalcitonin 0.07 NG/ML (0.19-0.49) L 05/19/18 07:00 TSH 3rd Generation 1.53 mIU/mL (0.46-4.68) 05/18/18 15:00 Venous Blood Potassium 3.8 mmol/L (3.6-5.2) 05/18/18 13:42 Urine Color Yellow (YELLOW) 05/19/18 12:00 Urine Appearance Sl cloudy (CLEAR) 05/19/18 12:00 Urine pH 6.0 (4.7-8.0) 05/19/18 12:00 Ur Specific [place] 1.025 (1.005-1.035) 05/19/18 12:00 Urine Protein Negative mg/dL (<30 mg/dL) 05/19/18 12:00 Urine Glucose (UA) 250 mg/dL (NEGATIVE) H 05/19/18 12:00 Urine Ketones 40 mg/dL (NEGATIVE) H 05/19/18 12:00 Urine Blood Trace-lysed (NEGATIVE) H 05/19/18 12:00 Urine Nitrate Negative (NEGATIVE) 05/19/18 12:00 Urine Bilirubin Negative (NEGATIVE) 05/19/18 12:00 Urine Urobilinogen 0.2 E.U./dL (<1 E.U./dL) 05/19/18 12:00 Ur Leukocyte Esterase Small Jorden/uL (NEGATIVE) H 05/19/18 12:00 Urine RBC 0 - 2 /hpf (0-2) 05/19/18 12:00 Urine WBC 5 - 10 /hpf (0-6) 05/19/18 12:00 Ur Epithelial Cells Many /hpf (0-5) 05/19/18 12:00 Urine Bacteria Mod (NEG) 05/19/18 12:00 Urine Opiates Screen Negative (NEGATIVE) 05/18/18 15:00 Urine Methadone Screen Negative (NEGATIVE) 05/18/18 15:00 Ur Barbiturates Screen Negative (NEGATIVE) 05/18/18 15:00 Ur Phencyclidine Scrn Negative (NEGATIVE) 05/18/18 15:00 Ur Amphetamines Screen Negative (NEGATIVE) 05/18/18 15:00 U Benzodiazepines Scrn Negative (NEGATIVE) 05/18/18 15:00 U Oth Cocaine Metabols Negative (NEGATIVE) 05/18/18 15:00 U Cannabinoids Screen Negative (NEGATIVE) 05/18/18 15:00 RPR Nonreactive (NONREACTIVE) 05/19/18 06:05 Blood Type B POSITIVE 05/18/18 14:02 Blood Type Confirm B POSITIVE 05/18/18 14:32 Antibody Screen Negative 05/18/18 14:02 BBK History Checked No verified bt 05/18/18 14:02 - Hospital Course Hospital Course: HPI at time of admission: "63 F with unknown past medical history who presents with family members with complaints of patient having marked trouble with talking. Most of history was obtained from patient's daughter as patient was unable to communicate well. As per daughter, patient began complaining of generalized cold like symptoms which began Wednesday night. Patient then woke up Wednesday to go to work and still didn't feel well however kept trying to work. By late afternoon patient noted something was "off" and left work early to go home. By time patient got home she noticed she was having difficult speaking and ten decided to sleep due to frustration with homes that upon wakening her symptoms would have resolved. Of note patient's neighbor noticed that patient was struggling to get inside the house since she would only place they bhatti in the door knob however couldnt think to turn the actual door knob to open the door and was observed to be pushing the door with her hand without turning the k nob with hopes of thee door opening which the neighbor found bizarre. ROS limited due to patient's condition." Hospital course: Pt presented with expressive aphasia and R-sided weakness, was admitted for management of CVA. Pt did not receive tPA at time of presentation due to being greater than 3-4.5 hrs from onset of presentation. Pertinent imaging: CT Head 05/18: discrete round low-density lesions in left posterior cuellar radiata and parietal subcortical white matter CTA Head/neck 05/18: negative for current aneurysm, stenosis or occlusion Brain MRI 05/19: 2 areas of diffusion-weighted abnormality with associated abnormal signal on FLAIR imaging in the L cuellar radiata measuring 1.3 and 1.5 cm consistent with acute infarcts; no significant mass effect Echo 05/20: normal LV function, mild tricuspid regurgitation, mild pulmonary HTN Neurology was consulted (Dr. Jones), who recommended appropriate imaging and follow-up outpatient after acute rehab. Pt was placed on ASA, Plavix, and Lipitor. Fingersticks were trended and insulin titrated to improve glycemic control. Hgb A1c was 12. Diabetic education and precinct captain were consulted for further rmanagement. Stressed importance of glycemic control and appropriate primary care follow-up after discharge. Pt's presenting symptoms improved during admission, but pt still had residual deficits in motor control, namely R-sided weakness and expressive aphasia. Pt received PT/OT during admission for management of symptoms. Pt was discharged to acute rehab facility on 05/23/18 for further management. Instructed to follow-up with PMD Dr. Irizarry and Neurology within 1 week of discharge from rehab facility. All questions and concerns addressed with pt and pt's daughter at bedside; both were agreeable to plan. Disability form filled out for pt to be given to pt's work insurance company. Discharge Exam - Head Exam Head Exam: ATRAUMATIC, NORMOCEPHALIC - Eye Exam Eye Exam: EOMI, Normal appearance, PERRL - ENT Exam ENT Exam: Mucous Membranes Moist - Respiratory Exam Respiratory Exam: Clear to PA & Lateral, NORMAL BREATHING PATTERN, UNREMARKABLE - Cardiovascular Exam Cardiovascular Exam: REGULAR RHYTHM, +S1, +S2. absent: Gallop, Rubs, Systolic Murmur - GI/Abdominal Exam GI & Abdominal Exam: Normal Bowel Sounds, Soft, Unremarkable - Extremities Exam Extremities exam: normal capillary refill, pedal pulses present Additional comments: Limited ROM 2/2 to R-sided weakness - Neurological Exam Neurological exam: Alert, Oriented x3 - Skin Skin Exam: Dry, Intact, Normal Color, Warm Discharge Plan - Follow Up Plan Condition: GUARDED Disposition: TRANSF TO SNF Instructions: Stroke (DC), Lowering the Risk of Having Another Stroke, Caring for a Loved One After a Stroke, Stroke Rehab Exercises Additional Instructions: Please follow-up with your primary care physician (Dr. Irizarry) after discharge from acute rehab facility within 3-5 days. Patient to follow up with neurologist Dr. Jones within 7 days of discharge from acute rehab. Patient to continue with inpatient medications as prescribed in acute rehab facility. Should your symptoms recur, please call your primary care physician or report to your nearest emergency department. Referrals: Trista Irizarry MD [Primary Care Provider] - Raz Jones MD [Staff Provider] - <Phuong Dubon R - Last Filed: 05/24/18 08:37> Provider - Provider Date of Admission: 05/18/18 15:57 Attending physician: Tiffani Rodriguez MD Primary care physician: Trista Irizarry MD Consults: 05/18/18 12:56 Stroke Team Consult Stat Comment: Consulting Provider: Neurohospitalist Consulting Physician: NEUROHOSP Neurohospitalist for Consult: Raz Jones Neurohospitalist for Consult: Kierra Tolentino Reason for Consult: slurred speech, confussed, slow to follow commands r/o CVA 05/18/18 23:43 Diabetic Education Referral Routine Comment: Physician Instructions: Reason For Exam: HgA1C 12 05/19/18 00:40 Social Work Referral Routine Comment: admission assessment Physician Instructions: Reason For Exam: admission assessment 05/19/18 00:56 Transition In Care/Readmission Reduction Routine Comment: Physician Instructions: Reason For Exam: admission assessment 05/19/18 06:55 Neurology Consult Routine Comment: Consulting Provider: Raz Jones Consulting Physician: Raz Jones Reason for Consult: CVA Hospital Course - Lab Results Lab Results: Micro Results 05/18/18 14:30 Blood Blood Culture - Final NO GROWTH AFTER 5 DAYS 05/18/18 14:30 Blood Gram Stain - Final TEST NOT PERFORMED 05/18/18 13:42 Blood Blood Culture - Final NO GROWTH AFTER 5 DAYS 05/18/18 13:42 Blood Gram Stain - Final TEST NOT PERFORMED 05/19/18 12:00 Urine,Clean Catch Urine Culture - Final No Growth (<1,000 CFU/ML) Most Recent Lab Values WBC 9.7 10^3/uL (4.5-11.0) D 05/23/18 07:00 RBC 5.08 10^6/uL (3.5-6.1) 05/23/18 07:00 Hgb 13.9 g/dL (12.0-16.0) 05/23/18 07:00 Hct 40.7 % (36.0-48.0) 05/23/18 07:00 MCV 80.1 fl (80.0-105.0) 05/23/18 07:00 MCH 27.4 pg (25.0-35.0) 05/23/18 07:00 MCHC 34.2 g/dl (31.0-37.0) 05/23/18 07:00 RDW 11.7 % (11.5-14.5) 05/23/18 07:00 Plt Count 396 10^3/uL (120.0-450.0) 05/23/18 07:00 MPV 9.7 fl (7.0-11.0) 05/23/18 07:00 Gran % 62.2 % (50.0-68.0) 05/23/18 07:00 Lymph % (Auto) 24.4 % (22.0-35.0) 05/23/18 07:00 [place] % (Auto) 12.0 % (1.0-6.0) H 05/23/18 07:00 Eos % (Auto) 1.1 % (1.5-5.0) L 05/23/18 07:00 Baso % (Auto) 0.3 % (0.0-3.0) 05/23/18 07:00 Gran # 6.02 (1.4-6.5) 05/23/18 07:00 Lymph # (Auto) 2.4 (1.2-3.4) 05/23/18 07:00 [place] # (Auto) 1.2 (0.1-0.6) H 05/23/18 07:00 Eos # (Auto) 0.1 (0.0-0.7) 05/23/18 07:00 Baso # (Auto) 0.03 K/mm3 (0.0-2.0) 05/23/18 07:00 PT 12.5 SECONDS (9.4-12.5) 05/18/18 13:42 INR 1.09 05/18/18 13:42 APTT 25.7 Seconds (25.1-36.5) 05/18/18 13:42 pO2 73 mm/Hg (30-55) H 05/18/18 13:42 VBG pH 7.38 (7.32-7.43) 05/18/18 13:42 VBG pCO2 43.0 (40-60) 05/18/18 13:42 VBG HCO3 25.4 mmol/l (21-28) 05/18/18 13:42 VBG Total CO2 26.7 mmol.L (22-28) 05/18/18 13:42 VBG O2 Sat (Calc) 97.3 % (40-65) H 05/18/18 13:42 VBG Base Excess 0.0 mmol/L (0.0-2.0) 05/18/18 13:42 VBG Potassium 3.8 mmol/L (3.6-5.2) 05/18/18 13:42 Sodium 142.0 mmol/L (132-148) 05/18/18 13:42 Chloride 94.0 mmol/L (98-107) L 05/18/18 13:42 Glucose 268 mg/dl (65-105) H 05/18/18 13:42 Lactate 1.3 mmol/L (0.7-2.1) 05/18/18 13:42 FiO2 21.0 % 05/18/18 13:42 Sodium 139 mmol/L (132-148) 05/23/18 06:30 Potassium 3.4 mmol/L (3.6-5.0) L 05/23/18 06:30 Chloride 104 mmol/L (98-107) 05/23/18 06:30 Carbon Dioxide 27 mmol/L (21-33) 05/23/18 06:30 Anion Gap 11 (10-20) 05/23/18 06:30 BUN 12 mg/dL (7-21) 05/23/18 06:30 Creatinine 0.4 mg/dl (0.7-1.2) L 05/23/18 06:30 Est GFR ( Amer) > 60 05/23/18 06:30 Est GFR (Non-Af Amer) > 60 05/23/18 06:30 POC Glucose (mg/dL) 158 mg/dL (65-110) H 05/23/18 11:44 Random Glucose 182 mg/dL (70-110) H 05/23/18 06:30 Hemoglobin A1c 12.0 % (4.2-6.5) H 05/18/18 13:42 Calcium 9.1 mg/dL (8.4-10.5) 05/23/18 06:30 Phosphorus 3.7 mg/dL (2.5-4.5) 05/20/18 06:00 Magnesium 1.6 mg/dL (1.7-2.2) L 05/20/18 06:00 Total Bilirubin 0.4 mg/dL (0.2-1.3) 05/23/18 06:30 GGT 110 U/L (8-78) H 05/19/18 07:00 AST 28 U/L (14-36) 05/23/18 06:30 ALT 24 U/L (7-56) 05/23/18 06:30 Alkaline Phosphatase 111 U/L (38-126) 05/23/18 06:30 Troponin I < 0.01 ng/mL 05/18/18 13:42 Total Protein 6.9 g/dL (5.8-8.3) 05/23/18 06:30 Albumin 3.6 g/dL (3.0-4.8) 05/23/18 06:30 Globulin 3.3 gm/dL 05/23/18 06:30 Albumin/Globulin Ratio 1.1 (1.1-1.8) 05/23/18 06:30 Triglycerides 151 mg/dL (35-160) 05/19/18 06:05 Cholesterol 207 mg/dL (130-200) H 05/19/18 06:05 LDL Cholesterol Direct 138 mg/dL (0-129) H 05/19/18 06:05 HDL Cholesterol 36 mg/dL (29-60) 05/19/18 06:05 Vitamin B12 620 pg/mL (239-931) 05/18/18 15:00 Procalcitonin 0.07 NG/ML (0.19-0.49) L 05/19/18 07:00 TSH 3rd Generation 1.53 mIU/mL (0.46-4.68) 05/18/18 15:00 Venous Blood Potassium 3.8 mmol/L (3.6-5.2) 05/18/18 13:42 Urine Color Yellow (YELLOW) 05/19/18 12:00 Urine Appearance Sl cloudy (CLEAR) 05/19/18 12:00 Urine pH 6.0 (4.7-8.0) 05/19/18 12:00 Ur Specific [place] 1.025 (1.005-1.035) 05/19/18 12:00 Urine Protein Negative mg/dL (<30 mg/dL) 05/19/18 12:00 Urine Glucose (UA) 250 mg/dL (NEGATIVE) H 05/19/18 12:00 Urine Ketones 40 mg/dL (NEGATIVE) H 05/19/18 12:00 Urine Blood Trace-lysed (NEGATIVE) H 05/19/18 12:00 Urine Nitrate Negative (NEGATIVE) 05/19/18 12:00 Urine Bilirubin Negative (NEGATIVE) 05/19/18 12:00 Urine Urobilinogen 0.2 E.U./dL (<1 E.U./dL) 05/19/18 12:00 Ur Leukocyte Esterase Small [place]/uL (NEGATIVE) H 05/19/18 12:00 Urine RBC 0 - 2 /hpf (0-2) 05/19/18 12:00 Urine WBC 5 - 10 /hpf (0-6) 05/19/18 12:00 Ur Epithelial Cells Many /hpf (0-5) 05/19/18 12:00 Urine Bacteria Mod (NEG) 05/19/18 12:00 Urine Opiates Screen Negative (NEGATIVE) 05/18/18 15:00 Urine Methadone Screen Negative (NEGATIVE) 05/18/18 15:00 Ur Barbiturates Screen Negative (NEGATIVE) 05/18/18 15:00 Ur Phencyclidine Scrn Negative (NEGATIVE) 05/18/18 15:00 Ur Amphetamines Screen Negative (NEGATIVE) 05/18/18 15:00 U Benzodiazepines Scrn Negative (NEGATIVE) 05/18/18 15:00 U Oth Cocaine Metabols Negative (NEGATIVE) 05/18/18 15:00 U Cannabinoids Screen Negative (NEGATIVE) 05/18/18 15:00 RPR Nonreactive (NONREACTIVE) 05/19/18 06:05 Blood Type B POSITIVE 05/18/18 14:02 Blood Type Confirm B POSITIVE 05/18/18 14:32 Antibody Screen Negative 05/18/18 14:02 BBK History Checked No verified bt 05/18/18 14:02 Attending/Attestation - Attestation I have personally seen and examined this patient.: Yes I have fully participated in the care of the patient.: Yes I have reviewed all pertinent clinical information, including history, physical exam and plan: Yes Notes (Text): Patient seen and examined by me with resident 10:10AM on 05/23/18. Case including discharge plan discussed with resident. Agree with above with following additions/corrections. Patient was admitted with expressive aphasia, insulin-dependent type 2 diabetes, and leukocytosis. Head CT on 05/18/18 per radiologist showed discrete round low- density lesions in the left posterior cuellar radiate and parietal subcortical white matter. CTA head and neck per radiologist showed unremarkable CT angiography of Brain and Neck. Brain MRI per radiologist showed two areas of diffusion-weighted abnormality with associated abnormal signal on FLAIR imaging in the left cuellar radiate measuring 1.3 and 1.5 cm consistent with acute infarcts, no significant mass effect. Neurology was following. Patient was maintained on ASA, Plavix, and Lipitor. Speech and swallow therapy and physical therapy also following. Hemoglobin A1c was 12. Total cholesterol was 237. LDL was 163. Triglycerides were 128. HDL was 47. Vitamin B12 was 620. Pro-calcitonin was 0.07. TSH was 1.53. Patient had some improvement with physical therapy and speech therapy. Acute rehabilitation was recommended. Patient was cleared for discharge by neurology. Patient was discharged to [facility] [place]. Patient was found to have hypokalemia which resolved with oral replacement. She was continued on insulin sliding scale for history of insulin-dependent type 2 diabetes. Patient was continued on Lipitor for hypercholesterolemia. Patient's daughter was at bedside prior to discharge. Case and discharge instructions were discussed in detail with the patient and patient's duaghter prior to discharge. On day of discharge, patient states she is feeling better and is excited about leaving the hospital. Still with some expressive aphasia. Patient complains of some weakness in her right upper extremity. No chest pain or palpitations. No shortness of breath. No abdominal pain. No nausea or vomiting. No headaches or dizziness. No change in vision. No fevers or chills. No dysuria. Physical exam: General: Awake and alert lying in bed in no acute distress HEENT: Normocephalic, atraumatic. Extraocular muscles intact, pupils equal and reactive, no scleral icterus. Oropharynx is pink moist. Neck is supple. Cardiovascular: Normal rhythm. Normal S1 and S2. No murmurs, rubs, or gallops appreciated Pulmonary: Normal respiratory effort. No rhonchi, rales, or wheezing appreciated Gastrointestinal: Soft, nondistended. Nontender. Positive bowel sounds all 4 quadrants. No guarding. Musculoskeletal: Moves all extremities. No edema appreciated. No calf tenderness. No CVA tenderness. Central nervous system: AAO 3. CN2-12 grossly intact. Positive expressive aphasia. Positive right upper and lower extremity weakness when compared to left. Dermatologic: Skin warm and dry. Please see chart for full details. Follow up instructions: Patient to follow-up with primary care doctor within 3-5 days. Patient to follow-up with neurologist Dr. Jones within 7 days of discharge. Patient to take all medications as presribed. All instructions explained to patient and patient's daughter at bedside in detail. They both understand and agree to all instructions. Written instructions also given. Time spent in discharging the patient including chart review, medication reconciliation, discussion with the patient and patient's daughter at bedside, infertility medical assistant, consultants, and nursing staff was approximately 40 minutes.
== END 2018-05-23 16:40 | DRG 65 ==
LOC: ED 11:53 → ERH 15:57 → 2RNO 18:29 → 5RNO 05-22 15:03
PROVIDERS: ADMIT Hospitalist; ATTEND Internal Medicine
DX: I63.9 Cerebral infarction, unspecified (principal); N39.0 Urinary tract infection, site not specified; R41.4 Neurologic neglect syndrome; R47.01 Aphasia; R41.82 Altered mental status, unspecified; I10 Essential (primary) hypertension; E11.9 Type 2 diabetes mellitus without complications; E11.65 Type 2 diabetes mellitus with hyperglycemia; E78.00 Pure hypercholesterolemia, unspecified; E78.5 Hyperlipidemia, unspecified; E87.6 Hypokalemia; I07.1 Rheumatic tricuspid insufficiency; I27.20 Pulmonary hypertension, unspecified; Z79.4 Long term (current) use of insulin; Z90.49 Acquired absence of other specified parts of digestive tract